=== PATIENT | female | born 1950 | race Caucasian/White ===

== ENCOUNTER 2021-04-07 18:09 | Inpatient (IN) ==
[2021-04-07] MEDS ORDERED: NS 0.9% 1000 ml BAG 1,000 ML IV ONE (19:10)
[2021-04-07 21:11] LABS: ABS Basophils 0.1 10^3/ul (0-0.2); ABS Eosinophils 0.1 10^3/ul (0-0.6); ABS Lymphocytes 0.8 10^3/ul (1.0-4.8); ABS Monocytes 0.5 10^3/ul (0-0.8); ABS Neutrophils 7.6 10^3/ul (1.5-7.7); Eosinophil % 1.4 %; Hematocrit 26 % (35-47); Hemoglobin 8.9 g/dL (12.0-16.0); Lymphocyte % 8.5 %; Mean Corpuscular HGB Conc 34 g/dL (31-36); Mean Corpuscular Hemoglobin 29 pg (27-31); Mean Corpuscular Volume 85 fL (80-97); Mean Platelet Volume 7.2 fL (7.4-10.4); Platelet Count 303 10^3/uL (150-450); Red Blood Count 3.06 10^6 /uL (3.70-4.87); Red Cell Distribution Width 15 % (10-15)
[2021-04-07 21:29] LABS: ALT 8 U/L (7-52); Albumin 3.1 g/dL (3.2-5.2); Albumin/Globulin Ratio 0.8 (1-3); Alkaline Phosphatase 67 U/L (35-149); Blood Urea Nitrogen 35 mg/dL (6-24); CO2 Carbon Dioxide 32 mmol/L (22-32); Calcium 9.1 mg/dL (8.6-10.3); Chloride 101 mmol/L (101-111); Globulin 3.7 g/dL (2-4); Glucose 196 mg/dL (70-100); Magnesium 1.5 mg/dL (1.9-2.7); Sodium 140 mmol/L (135-145); Total Protein 6.8 g/dL (6.4-8.9)
[2021-04-07] MEDS ORDERED: Furosemide 20 mg/2 ml IV VIAL IV SLOW PU ONE (21:38)
[2021-04-07 21:41] LABS: Anion Gap 7 mmol/L (2-11); Troponin I 0.04 ng/mL (<0.03)
[2021-04-07 22:23] LABS: Urine Appearance Cloudy; Urine Bilirubin Negative (Negative); Urine Blood 1+ (Negative); Urine Color Yellow; Urine Glucose Negative (Negative); Urine Ketones Negative (Negative); Urine Nitrite Negative (Negative); Urine Protein 2+(100 mg/dL) (Negative); Urine Urobilinogen Negative (Negative)
[2021-04-07 22:25] LABS: Urine Bacteria 3+ (Absent); Urine Red Blood Cell 3+(>10/hpf) (Absent); Urine Squamous Epithelial Cell Present (Absent); Urine White Blood Cell 2+(11-20/hpf) (Absent)
[2021-04-07 23:08] LABS: Rapid COVID-19 Molecular Undetected (Undetected)
[2021-04-07 23:12] LABS: Troponin I 0.04 ng/mL (<0.03)
[2021-04-07] MEDS ORDERED: Potassium Chloride LIQUID 20 MEQ/15 ML LIQUID PO ONE (23:28)
[2021-04-08] MEDS ORDERED: cefTRIAXone 1 gm/50 mL NS BAG 1 GM/50 ML BAG IVPB SCH
[2021-04-08] MEDS ORDERED: Albuterol HFA INHALER 8 gm MDI INH PRN (00:07)
[2021-04-08] MEDS ORDERED: Dextrose 50% Syringe 50 ml 25 GM/50 ML SYRINGE IV PUSH PRN (00:08)
[2021-04-08 00:19] LABS: Alcohol, S < 13 mg/dL (<13); Total Iron Binding Capacity 231 mcg/dL (250-450); Transferrin 165 mg/dL (203-362)
[2021-04-08] MEDS: Magnesium Sulf 4 GM/100 ML IV 4,000 MG/100 ML BAG IVPB ONE ×2 (00:30→01:29)
[2021-04-08] MEDS: cefTRIAXone 1 gm/50 mL NS BAG 1 GM/50 ML BAG IVPB SCH ×2 (00:32→20:40)
[2021-04-08 00:55] LABS: Ferritin 117.9 ng/mL (11-307)
[2021-04-08 00:58] LABS: Folate > 20.00 ng/mL (5.90-24.80)
[2021-04-08 00:59] LABS: Vitamin B12 375 pg/mL (180-914)
[2021-04-08 01:32] LABS: % Iron Saturation 22 % (15-55); Unsaturated Iron Binding < 216 ug/dL
[2021-04-08 01:33] LABS: Iron 51 ug/dL (50-212)
[2021-04-08 02:12] LABS: Troponin I 0.04 ng/mL (<0.03)
[2021-04-08 04:43] LABS: ABS Eosinophils 0.2 10^3/ul (0-0.6); ABS Lymphocytes 0.8 10^3/ul (1.0-4.8); ABS Monocytes 0.5 10^3/ul (0-0.8); ABS Neutrophils 6.6 10^3/ul (1.5-7.7); Eosinophil % 2.2 %; Hematocrit 25 % (35-47); Hemoglobin 8.3 g/dL (12.0-16.0); Lymphocyte % 10.1 %; Mean Corpuscular HGB Conc 34 g/dL (31-36); Mean Corpuscular Hemoglobin 29 pg (27-31); Mean Corpuscular Volume 85 fL (80-97); Mean Platelet Volume 6.9 fL (7.4-10.4); Platelet Count 305 10^3/uL (150-450); Red Blood Count 2.88 10^6 /uL (3.70-4.87); Red Cell Distribution Width 15 % (10-15); White Blood Count 8.2 10^3/uL (3.5-10.8)
[2021-04-08 07:13] LABS: ALT 7 U/L (7-52); AST 14 U/L (13-39); Albumin 3.1 g/dL (3.2-5.2); Albumin/Globulin Ratio 0.8 (1-3); Alkaline Phosphatase 71 U/L (35-149); Anion Gap 10 mmol/L (2-11); Blood Urea Nitrogen 32 mg/dL (6-24); CO2 Carbon Dioxide 31 mmol/L (22-32); Calcium 9.1 mg/dL (8.6-10.3); Chloride 102 mmol/L (101-111); Globulin 3.8 g/dL (2-4); Glucose 128 mg/dL (70-100); Potassium 3.4 mmol/L (3.5-5.0); Sodium 143 mmol/L (135-145); Total Protein 6.9 g/dL (6.4-8.9)
[2021-04-08] MEDS ORDERED: Perflutren Lipid Microsphere 3 ML VIAL ONE (08:10)
[2021-04-08] MEDS: SPIRIVA Respimat (tiotropium) 2.5 mcg/inh Inhaler INH SCH (08:14)
[2021-04-08] MEDS: Mometasone/Formoter 100/5 MDI INH SCH ×2 (08:14→20:08)
[2021-04-08] MEDS ORDERED: Potassium Chloride LIQUID 20 MEQ/15 ML LIQUID PO ONE (08:16)
[2021-04-08] MEDS: Aspirin EC 81 mg TAB.EC (enteric coated) PO SCH (09:33)
[2021-04-08] MEDS: Furosemide 20 mg/2 ml IV VIAL IV SLOW PU SCH ×2 (09:41→14:48)
[2021-04-08 15:08] LABS: T4, Total 9.42 mcg/dL (6.09-12.23)
[2021-04-08 15:12] LABS: TSH Ultra Thyroid Stim Horm 14.49 mcIU/mL (0.34-5.60)
[2021-04-09 06:17] LABS: ABS Basophils 0.1 10^3/ul (0-0.2); ABS Eosinophils 0.2 10^3/ul (0-0.6); ABS Lymphocytes 0.7 10^3/ul (1.0-4.8); ABS Monocytes 0.5 10^3/ul (0-0.8); ABS Neutrophils 7.2 10^3/ul (1.5-7.7); Eosinophil % 2.2 %; Hematocrit 27 % (35-47); Lymphocyte % 7.9 %; Mean Corpuscular HGB Conc 33 g/dL (31-36); Mean Corpuscular Hemoglobin 29 pg (27-31); Mean Corpuscular Volume 86 fL (80-97); Mean Platelet Volume 7.1 fL (7.4-10.4); Platelet Count 320 10^3/uL (150-450); Red Blood Count 3.15 10^6 /uL (3.70-4.87); Red Cell Distribution Width 15 % (10-15); White Blood Count 8.6 10^3/uL (3.5-10.8)
[2021-04-09 06:32] LABS: Calcium 9.3 mg/dL (8.6-10.3); Magnesium 2.1 mg/dL (1.9-2.7); Potassium 3.3 mmol/L (3.5-5.0)
[2021-04-09] MEDS ORDERED: Potassium Chloride LIQUID 20 MEQ/15 ML LIQUID PO ONE (08:16)
[2021-04-09] MEDS: Aspirin EC 81 mg TAB.EC (enteric coated) PO SCH (08:26)
[2021-04-09] MEDS: Furosemide 20 mg/2 ml IV VIAL IV SLOW PU SCH ×2 (08:26→15:09)
[2021-04-09] MEDS: SPIRIVA Respimat (tiotropium) 2.5 mcg/inh Inhaler INH SCH (08:42)
[2021-04-09] MEDS: Mometasone/Formoter 100/5 MDI INH SCH ×2 (08:42→21:18)
[2021-04-09] MEDS: Enoxaparin 30 MG/0.3 ML SYR SUBCUT SCH (15:08)
[2021-04-09] MEDS ORDERED: Potassium Chlor 20 meq TAB.ER PO ONE (16:02)
[2021-04-09] MEDS: cefTRIAXone 1 gm/50 mL NS BAG 1 GM/50 ML BAG IVPB SCH (20:43)
[2021-04-10 07:00] LABS: ABS Basophils 0.1 10^3/ul (0-0.2); ABS Eosinophils 0.2 10^3/ul (0-0.6); ABS Lymphocytes 0.9 10^3/ul (1.0-4.8); ABS Monocytes 0.4 10^3/ul (0-0.8); ABS Neutrophils 4.2 10^3/ul (1.5-7.7); Hematocrit 24 % (35-47); Hemoglobin 7.8 g/dL (12.0-16.0); Lymphocyte % 15.5 %; Mean Corpuscular HGB Conc 33 g/dL (31-36); Mean Corpuscular Hemoglobin 29 pg (27-31); Mean Corpuscular Volume 88 fL (80-97); Mean Platelet Volume 7.1 fL (7.4-10.4); Platelet Count 243 10^3/uL (150-450); Red Blood Count 2.69 10^6 /uL (3.70-4.87); Red Cell Distribution Width 16 % (10-15); White Blood Count 5.7 10^3/uL (3.5-10.8)
[2021-04-10 07:19] LABS: Calcium 8.9 mg/dL (8.6-10.3); Potassium 3.9 mmol/L (3.5-5.0)
[2021-04-10] MEDS: Mometasone/Formoter 100/5 MDI INH SCH ×2 (08:05→20:35)
[2021-04-10] MEDS: SPIRIVA Respimat (tiotropium) 2.5 mcg/inh Inhaler INH SCH (08:05)
[2021-04-10] MEDS: Aspirin EC 81 mg TAB.EC (enteric coated) PO SCH (08:51)
[2021-04-10] MEDS: Furosemide 20 mg/2 ml IV VIAL IV SLOW PU SCH ×2 (10:26→15:43)
[2021-04-10] MEDS ORDERED: Magnesium Sulfate 2 gm BAG 2 GM/50 ML BAG ONE (10:53)
[2021-04-10] MEDS: Enoxaparin 30 MG/0.3 ML SYR SUBCUT SCH (14:27)
[2021-04-10] MEDS: cefTRIAXone 1 gm/50 mL NS BAG 1 GM/50 ML BAG IVPB SCH (21:30)
[2021-04-11 06:10] LABS: ABS Basophils 0.1 10^3/ul (0-0.2); ABS Eosinophils 0.2 10^3/ul (0-0.6); ABS Lymphocytes 0.9 10^3/ul (1.0-4.8); ABS Monocytes 0.5 10^3/ul (0-0.8); ABS Neutrophils 6.9 10^3/ul (1.5-7.7); Eosinophil % 2.1 %; Hematocrit 28 % (35-47); Hemoglobin 9.4 g/dL (12.0-16.0); Lymphocyte % 10.6 %; Mean Corpuscular HGB Conc 34 g/dL (31-36); Mean Corpuscular Hemoglobin 29 pg (27-31); Mean Corpuscular Volume 87 fL (80-97); Mean Platelet Volume 7.2 fL (7.4-10.4); Platelet Count 301 10^3/uL (150-450); Red Blood Count 3.23 10^6 /uL (3.70-4.87); Red Cell Distribution Width 16 % (10-15); White Blood Count 8.5 10^3/uL (3.5-10.8)
[2021-04-11 06:33] LABS: Calcium 9.3 mg/dL (8.6-10.3); Potassium 3.8 mmol/L (3.5-5.0)
[2021-04-11] MEDS: Mometasone/Formoter 100/5 MDI INH SCH ×2 (07:38→20:28)
[2021-04-11] MEDS: SPIRIVA Respimat (tiotropium) 2.5 mcg/inh Inhaler INH SCH (07:39)
[2021-04-11] MEDS: Aspirin EC 81 mg TAB.EC (enteric coated) PO SCH (09:03)
[2021-04-11] MEDS: Furosemide 20 mg/2 ml IV VIAL IV SLOW PU SCH ×2 (09:10→14:35)
[2021-04-11] MEDS ORDERED: Polyethylene Glycol 3350 17 GM PACKET PO PRN (11:23)
[2021-04-11] MEDS ORDERED: Magnesium Hydroxide LIQ 30 ML UDC PO PRN (11:23)
[2021-04-11] MEDS ORDERED: Senna TAB 8.6 mg TAB PO PRN (11:23)
[2021-04-11] MEDS: Enoxaparin 30 MG/0.3 ML SYR SUBCUT SCH (14:35)
[2021-04-11] MEDS: cefTRIAXone 1 gm/50 mL NS BAG 1 GM/50 ML BAG IVPB SCH (21:10)
[2021-04-12] MEDS: SPIRIVA Respimat (tiotropium) 2.5 mcg/inh Inhaler INH SCH (07:52)
[2021-04-12] MEDS: Mometasone/Formoter 100/5 MDI INH SCH ×2 (07:52→20:34)
[2021-04-12] MEDS: Aspirin EC 81 mg TAB.EC (enteric coated) PO SCH (08:46)
[2021-04-12] MEDS: Furosemide 20 mg/2 ml IV VIAL IV SLOW PU SCH ×3 (08:53→14:28)
[2021-04-12] MEDS: Enoxaparin 30 MG/0.3 ML SYR SUBCUT SCH (13:55)
[2021-04-12] MEDS: cefTRIAXone 1 gm/50 mL NS BAG 1 GM/50 ML BAG IVPB SCH (21:19)
[2021-04-13] MEDS: Aspirin EC 81 mg TAB.EC (enteric coated) PO SCH (08:47)
[2021-04-13] MEDS: Furosemide 20 mg/2 ml IV VIAL IV SLOW PU SCH ×2 (09:05→15:06)
[2021-04-13] MEDS: SPIRIVA Respimat (tiotropium) 2.5 mcg/inh Inhaler INH SCH (09:19)
[2021-04-13] MEDS: Mometasone/Formoter 100/5 MDI INH SCH ×2 (09:20→20:05)
[2021-04-13 10:30] LABS: ABS Basophils 0.1 10^3/ul (0-0.2); ABS Eosinophils 0.2 10^3/ul (0-0.6); ABS Lymphocytes 0.8 10^3/ul (1.0-4.8); ABS Monocytes 0.3 10^3/ul (0-0.8); ABS Neutrophils 3.9 10^3/ul (1.5-7.7); Eosinophil % 3.8 %; Hematocrit 29 % (35-47); Hemoglobin 9.7 g/dL (12.0-16.0); Lymphocyte % 15.5 %; Mean Corpuscular HGB Conc 33 g/dL (31-36); Mean Corpuscular Hemoglobin 29 pg (27-31); Mean Corpuscular Volume 88 fL (80-97); Mean Platelet Volume 7.3 fL (7.4-10.4); Nucleated Red Blood Cells % 0.1; Platelet Count 288 10^3/uL (150-450); Red Blood Count 3.34 10^6 /uL (3.70-4.87); Red Cell Distribution Width 16 % (10-15); White Blood Count 5.4 10^3/uL (3.5-10.8)
[2021-04-13 10:49] LABS: Calcium 9.4 mg/dL (8.6-10.3); Magnesium 1.7 mg/dL (1.9-2.7); Potassium 3.6 mmol/L (3.5-5.0)
[2021-04-13] MEDS: Enoxaparin 30 MG/0.3 ML SYR SUBCUT SCH (15:04)
[2021-04-13] MEDS: Nystatin TOP POWDER 15 GM BTL TOPICAL SCH ×3 (18:06→21:33)
[2021-04-13] MEDS: cefTRIAXone 1 gm/50 mL NS BAG 1 GM/50 ML BAG IVPB SCH (21:17)
[2021-04-14] MEDS: Mometasone/Formoter 100/5 MDI INH SCH ×2 (07:54→21:29)
[2021-04-14] MEDS: SPIRIVA Respimat (tiotropium) 2.5 mcg/inh Inhaler INH SCH (07:55)
[2021-04-14] MEDS: Aspirin EC 81 mg TAB.EC (enteric coated) PO SCH (09:14)
[2021-04-14] MEDS: Nystatin TOP POWDER 15 GM BTL TOPICAL SCH ×4 (09:15→21:45)
[2021-04-14 12:03] LABS: Calcium 9.2 mg/dL (8.6-10.3); Magnesium 1.7 mg/dL (1.9-2.7)
[2021-04-14] MEDS ORDERED: Magnesium Sulfate 2 gm BAG 2 GM/50 ML BAG IVPB ONE (13:45)
[2021-04-14] MEDS: Enoxaparin 30 MG/0.3 ML SYR SUBCUT SCH (14:48)
[2021-04-15 05:25] LABS: ABS Basophils 0.1 10^3/ul (0-0.2); ABS Eosinophils 0.2 10^3/ul (0-0.6); ABS Lymphocytes 0.9 10^3/ul (1.0-4.8); ABS Monocytes 0.4 10^3/ul (0-0.8); Eosinophil % 3.9 %; Hematocrit 27 % (35-47); Hemoglobin 8.9 g/dL (12.0-16.0); Lymphocyte % 19.9 %; Mean Corpuscular HGB Conc 34 g/dL (31-36); Mean Corpuscular Hemoglobin 29 pg (27-31); Mean Corpuscular Volume 87 fL (80-97); Mean Platelet Volume 7.1 fL (7.4-10.4); Nucleated Red Blood Cells % 0.1; Platelet Count 235 10^3/uL (150-450); Red Blood Count 3.05 10^6 /uL (3.70-4.87); Red Cell Distribution Width 16 % (10-15); White Blood Count 4.5 10^3/uL (3.5-10.8)
[2021-04-15 05:52] LABS: Calcium 9.2 mg/dL (8.6-10.3); Potassium 3.8 mmol/L (3.5-5.0)
[2021-04-15] MEDS: Mometasone/Formoter 100/5 MDI INH SCH ×2 (07:57→20:37)
[2021-04-15] MEDS: SPIRIVA Respimat (tiotropium) 2.5 mcg/inh Inhaler INH SCH (07:57)
[2021-04-15] MEDS: Aspirin EC 81 mg TAB.EC (enteric coated) PO SCH (09:42)
[2021-04-15] MEDS: Nystatin TOP POWDER 15 GM BTL TOPICAL SCH ×3 (09:42→21:55)
[2021-04-15 11:10] LABS: Kappa Free Light Chain 12.1 mg/dL; Lambda Free Light Chain, S 8.11 mg/dL
[2021-04-15] MEDS: Enoxaparin 30 MG/0.3 ML SYR SUBCUT SCH (12:45)
[2021-04-16 05:32] LABS: ABS Basophils 0.1 10^3/ul (0-0.2); ABS Eosinophils 0.2 10^3/ul (0-0.6); ABS Lymphocytes 0.9 10^3/ul (1.0-4.8); ABS Monocytes 0.3 10^3/ul (0-0.8); ABS Neutrophils 3.4 10^3/ul (1.5-7.7); Hematocrit 28 % (35-47); Lymphocyte % 18.9 %; Mean Corpuscular HGB Conc 33 g/dL (31-36); Mean Corpuscular Hemoglobin 29 pg (27-31); Mean Corpuscular Volume 87 fL (80-97); Mean Platelet Volume 6.7 fL (7.4-10.4); Platelet Count 259 10^3/uL (150-450); Red Blood Count 3.14 10^6 /uL (3.70-4.87); Red Cell Distribution Width 16 % (10-15)
[2021-04-16 05:52] LABS: Calcium 9.1 mg/dL (8.6-10.3); Potassium 3.7 mmol/L (3.5-5.0)
[2021-04-16] MEDS: SPIRIVA Respimat (tiotropium) 2.5 mcg/inh Inhaler INH SCH (08:08)
[2021-04-16] MEDS: Mometasone/Formoter 100/5 MDI INH SCH ×2 (08:08→21:14)
[2021-04-16] MEDS: Aspirin EC 81 mg TAB.EC (enteric coated) PO SCH (08:48)
[2021-04-16] MEDS: Nystatin TOP POWDER 15 GM BTL TOPICAL SCH ×3 (08:48→20:24)
[2021-04-16 14:24] LABS: Albumin 2.7 g/dL (3.4-4.7); Albumin/Globulin Ratio 0.69; Gamma Globulin 1.6 g/dL (0.6-1.6); Total Protein(PEP) 6.7 g/dL (6.3 - 7.9)
[2021-04-16] MEDS: Enoxaparin 30 MG/0.3 ML SYR SUBCUT SCH (15:03)
[2021-04-17] MEDS: Mometasone/Formoter 100/5 MDI INH SCH ×2 (08:19→19:27)
[2021-04-17] MEDS: SPIRIVA Respimat (tiotropium) 2.5 mcg/inh Inhaler INH SCH (08:19)
[2021-04-17] MEDS: Nystatin TOP POWDER 15 GM BTL TOPICAL SCH ×3 (09:27→20:40)
[2021-04-17] MEDS: Aspirin EC 81 mg TAB.EC (enteric coated) PO SCH (09:38)
[2021-04-17] MEDS: Enoxaparin 30 MG/0.3 ML SYR SUBCUT SCH (15:43)
[2021-04-18 06:36] LABS: ABS Basophils 0.1 10^3/ul (0-0.2); ABS Eosinophils 0.2 10^3/ul (0-0.6); ABS Lymphocytes 0.9 10^3/ul (1.0-4.8); ABS Monocytes 0.4 10^3/ul (0-0.8); ABS Neutrophils 3.2 10^3/ul (1.5-7.7); Eosinophil % 3.6 %; Hematocrit 26 % (35-47); Lymphocyte % 19.3 %; Mean Corpuscular HGB Conc 34 g/dL (31-36); Mean Corpuscular Hemoglobin 30 pg (27-31); Mean Corpuscular Volume 89 fL (80-97); Platelet Count 222 10^3/uL (150-450); Red Blood Count 2.99 10^6 /uL (3.70-4.87); Red Cell Distribution Width 17 % (10-15); White Blood Count 4.6 10^3/uL (3.5-10.8)
[2021-04-18 06:53] LABS: Potassium 3.7 mmol/L (3.5-5.0)
[2021-04-18] MEDS: SPIRIVA Respimat (tiotropium) 2.5 mcg/inh Inhaler INH SCH (08:07)
[2021-04-18] MEDS: Mometasone/Formoter 100/5 MDI INH SCH (08:07)
[2021-04-18] MEDS: Aspirin EC 81 mg TAB.EC (enteric coated) PO SCH (08:17)
[2021-04-18] MEDS: Nystatin TOP POWDER 15 GM BTL TOPICAL SCH (08:19)
[2021-04-18 13:37] VITALS: BP 131/50
== END 2021-04-18 15:00 | disposition home health service (06) | DRG 291 ==
LOC: EDHOLD 18:09 → ED 18:09 → MED 04-08 03:43 → SUATTDRO 04-08 11:28
PROVIDERS: ADMIT Internal Medicine; ATTEND Hospitalist

== ENCOUNTER 2021-09-25 16:24 | Inpatient (IN) ==
[2021-09-25 17:43] LABS: ABS Eosinophils 0.3 10^3/ul (0-0.6); ABS Lymphocytes 0.7 10^3/ul (1.0-4.8); ABS Monocytes 0.4 10^3/ul (0-0.8); ABS Neutrophils 4.7 10^3/ul (1.5-7.7); Eosinophil % 5.4 %; Hematocrit 30 % (35-47); Hemoglobin 10.1 g/dL (12.0-16.0); Lymphocyte % 11.2 %; Mean Corpuscular HGB Conc 34 g/dL (31-36); Mean Corpuscular Hemoglobin 29 pg (27-31); Mean Corpuscular Volume 86 fL (80-97); Mean Platelet Volume 8.2 fL (7.4-10.4); Platelet Count 260 10^3/uL (150-450); Red Blood Count 3.47 10^6 /uL (3.70-4.87); Red Cell Distribution Width 15 % (10-15); White Blood Count 6.3 10^3/uL (3.5-10.8)
[2021-09-25] MEDS ORDERED: Ondansetron 4 mg VIAL 2 MG/ML 2 ml VIAL IV ONE (17:46)
[2021-09-25 18:31] LABS: Albumin 3.4 g/dL (3.2-5.2); Albumin/Globulin Ratio 1.1 (1-3); Calcium 9.2 mg/dL (8.6-10.3); Globulin 3.2 g/dL (2-4); Potassium 3.9 mmol/L (3.5-5.0); Total Bilirubin 0.7 mg/dL (0.2-1.0); Total Protein 6.6 g/dL (6.4-8.9); eGFR CKD-EPI 41.8 (>60)
[2021-09-25] MEDS ORDERED: Furosemide 40 mg/4 ml IV VIAL IV SLOW PU ONE (18:35)
[2021-09-25 19:21] LABS: High Sensitivity Troponin 1 Hr 25 pg/mL (<15)
[2021-09-25] MEDS ORDERED: Iodixanol (CONTRAST) 320 MG/ML 100 ML SDV IV ONE (20:35)
[2021-09-25] MEDS ORDERED: Albuterol HFA INHALER 8 gm MDI INH PRN (23:36)
[2021-09-25] MEDS: Enoxaparin 40 MG/0.4 ML SYR SUBCUT SCH (23:56)
[2021-09-26] MEDS ORDERED: Enoxaparin 40 MG/0.4 ML SYR SUBCUT ONE (00:08)
[2021-09-26] MEDS ORDERED: Dextrose 50% Syringe 50 ml 25 GM/50 ML SYRINGE IV PUSH PRN (00:13)
[2021-09-26 00:58] LABS: Magnesium 1.8 mg/dL (1.9-2.7)
[2021-09-26] MEDS ORDERED: Ondansetron 4 mg VIAL 2 MG/ML 2 ml VIAL IV ONE (05:38)
[2021-09-26] MEDS ORDERED: Furosemide 40 mg/4 ml IV VIAL IV SLOW PU ONE (06:00)
[2021-09-26 09:07] LABS: ABS Basophils 0.1 10^3/ul (0-0.2); ABS Eosinophils 0.3 10^3/ul (0-0.6); ABS Lymphocytes 0.5 10^3/ul (1.0-4.8); ABS Monocytes 0.4 10^3/ul (0-0.8); ABS Neutrophils 7.8 10^3/ul (1.5-7.7); Eosinophil % 3.5 %; Hematocrit 33 % (35-47); Hemoglobin 10.8 g/dL (12.0-16.0); Lymphocyte % 5.9 %; Mean Corpuscular HGB Conc 33 g/dL (31-36); Mean Corpuscular Hemoglobin 29 pg (27-31); Mean Corpuscular Volume 87 fL (80-97); Mean Platelet Volume 8.5 fL (7.4-10.4); Nucleated Red Blood Cells % 0.1; Platelet Count 260 10^3/uL (150-450); Red Blood Count 3.73 10^6 /uL (3.70-4.87); Red Cell Distribution Width 14 % (10-15); White Blood Count 9.2 10^3/uL (3.5-10.8)
[2021-09-26] MEDS: Ipratropium HFA INHALER(NF) (ALTERNATIVE = NEBS) INH SCH ×4 (09:13→20:32)
[2021-09-26] MEDS: Mometasone/Formoter 100/5 MDI INH SCH ×2 (09:14→20:32)
[2021-09-26 09:43] LABS: Calcium 9.6 mg/dL (8.6-10.3); Magnesium 1.7 mg/dL (1.9-2.7); Potassium 4.1 mmol/L (3.5-5.0)
[2021-09-26 09:49] LABS: eGFR CKD-EPI 35.9 (>60)
[2021-09-26 10:07] LABS: Ferritin 95.9 ng/mL (11-307)
[2021-09-26] MEDS: Aspirin EC 81 mg TAB.EC (enteric coated) PO SCH (10:12)
[2021-09-26] MEDS ORDERED: Magnesium Sulf 4 GM/100 ML IV 4,000 MG/100 ML BAG IVPB ONE (11:27)
[2021-09-26] MEDS: Enoxaparin 40 MG/0.4 ML SYR SUBCUT SCH (22:07)
[2021-09-27] MEDS ORDERED: Ondansetron 4 mg VIAL 2 MG/ML 2 ml VIAL IV ONE (02:17)
[2021-09-27] MEDS: Benzocaine/Menthol LOZ PO PRN ×3 (03:19→23:12)
[2021-09-27 08:15] LABS: ABS Eosinophils 0.3 10^3/ul (0-0.6); ABS Lymphocytes 0.4 10^3/ul (1.0-4.8); ABS Monocytes 0.3 10^3/ul (0-0.8); Eosinophil % 5.3 %; Hematocrit 30 % (35-47); Lymphocyte % 7.2 %; Mean Corpuscular HGB Conc 33 g/dL (31-36); Mean Corpuscular Hemoglobin 29 pg (27-31); Mean Corpuscular Volume 87 fL (80-97); Mean Platelet Volume 8.5 fL (7.4-10.4); Platelet Count 258 10^3/uL (150-450); Red Blood Count 3.44 10^6 /uL (3.70-4.87); Red Cell Distribution Width 14 % (10-15)
[2021-09-27] MEDS: Ipratropium HFA INHALER(NF) (ALTERNATIVE = NEBS) INH SCH (08:16)
[2021-09-27] MEDS: Mometasone/Formoter 100/5 MDI INH SCH ×2 (08:19→20:03)
[2021-09-27 09:07] LABS: Calcium 9.2 mg/dL (8.6-10.3); Magnesium 2.6 mg/dL (1.9-2.7); Potassium 4.2 mmol/L (3.5-5.0)
[2021-09-27 09:13] LABS: eGFR CKD-EPI 28.8 (>60)
[2021-09-27] MEDS ORDERED: Furosemide 40 mg/4 ml IV VIAL IV SLOW PU ONE ×2 (09:42→14:00)
[2021-09-27] MEDS: Aspirin EC 81 mg TAB.EC (enteric coated) PO SCH (09:55)
[2021-09-27 13:56] LABS: Calcium 8.7 mg/dL (8.6-10.3); Potassium 4.1 mmol/L (3.5-5.0); eGFR CKD-EPI 28.8 (>60)
[2021-09-27] MEDS: cefTRIAXone 1 gm/50 mL D5W 1 GM/50 ML BAG IV SCH (15:35)
[2021-09-27] MEDS: Azithromycin 500 mg/250 ml NS 500 MG/250 ML BAG IVPB SCH ×2 (16:58→17:52)
[2021-09-27] MEDS: Enoxaparin 40 MG/0.4 ML SYR SUBCUT SCH (21:12)
[2021-09-27] MEDS: Ipratropium HFA INHALER(NF) (ALTERNATIVE = NEBS) INH PRN (23:12)
[2021-09-28 06:46] LABS: ABS Lymphocytes 0.3 10^3/ul (1.0-4.8); ABS Monocytes 0.3 10^3/ul (0-0.8); ABS Neutrophils 3.6 10^3/ul (1.5-7.7); Hematocrit 29 % (35-47); Hemoglobin 9.7 g/dL (12.0-16.0); Lymphocyte % 7.7 %; Mean Corpuscular HGB Conc 34 g/dL (31-36); Mean Corpuscular Hemoglobin 30 pg (27-31); Mean Corpuscular Volume 87 fL (80-97); Platelet Count 251 10^3/uL (150-450); Red Cell Distribution Width 14 % (10-15); White Blood Count 4.3 10^3/uL (3.5-10.8)
[2021-09-28 06:51] LABS: Calcium 8.8 mg/dL (8.6-10.3); Magnesium 2.5 mg/dL (1.9-2.7); eGFR CKD-EPI 20.9 (>60)
[2021-09-28] MEDS: Mometasone/Formoter 100/5 MDI INH SCH ×2 (08:26→20:07)
[2021-09-28] MEDS: Ipratropium HFA INHALER(NF) (ALTERNATIVE = NEBS) INH PRN (08:29)
[2021-09-28] MEDS: Aspirin EC 81 mg TAB.EC (enteric coated) PO SCH (09:18)
[2021-09-28] MEDS: Benzocaine/Menthol LOZ PO PRN ×2 (09:18→20:58)
[2021-09-28] MEDS ORDERED: NS 0.9% 1000 ml BAG 1,000 ML IV SCH (09:30)
[2021-09-28] MEDS: cefTRIAXone 1 gm/50 mL D5W 1 GM/50 ML BAG IV SCH (13:13)
[2021-09-28] MEDS: Azithromycin 500 mg/250 ml NS 500 MG/250 ML BAG IVPB SCH (17:07)
[2021-09-28] MEDS: Enoxaparin 40 MG/0.4 ML SYR SUBCUT SCH (20:54)
[2021-09-29] MEDS: Mometasone/Formoter 100/5 MDI INH SCH ×2 (07:29→19:35)
[2021-09-29 08:19] LABS: ABS Eosinophils 0.2 10^3/ul (0-0.6); ABS Lymphocytes 0.5 10^3/ul (1.0-4.8); ABS Monocytes 0.4 10^3/ul (0-0.8); ABS Neutrophils 2.1 10^3/ul (1.5-7.7); Eosinophil % 6.8 %; Hematocrit 30 % (35-47); Hemoglobin 9.9 g/dL (12.0-16.0); Lymphocyte % 14.8 %; Mean Corpuscular HGB Conc 34 g/dL (31-36); Mean Corpuscular Hemoglobin 29 pg (27-31); Mean Corpuscular Volume 87 fL (80-97); Mean Platelet Volume 8.6 fL (7.4-10.4); Platelet Count 243 10^3/uL (150-450); Red Cell Distribution Width 14 % (10-15); White Blood Count 3.2 10^3/uL (3.5-10.8)
[2021-09-29 08:53] LABS: Albumin 3.1 g/dL (3.2-5.2); Calcium 8.6 mg/dL (8.6-10.3); Globulin 3.2 g/dL (2-4); Magnesium 2.4 mg/dL (1.9-2.7); Potassium 3.9 mmol/L (3.5-5.0); Total Bilirubin 0.4 mg/dL (0.2-1.0); Total Protein 6.3 g/dL (6.4-8.9); eGFR CKD-EPI 19.7 (>60)
[2021-09-29] MEDS: Aspirin EC 81 mg TAB.EC (enteric coated) PO SCH (09:01)
[2021-09-29] MEDS: cefTRIAXone 1 gm/50 mL D5W 1 GM/50 ML BAG IV SCH (13:45)
[2021-09-29] MEDS: Azithromycin 500 mg/250 ml NS 500 MG/250 ML BAG IVPB SCH (15:29)
[2021-09-29] MEDS: Enoxaparin 30 MG/0.3 ML SYR SUBCUT SCH (21:09)
[2021-09-30 06:44] LABS: ABS Eosinophils 0.2 10^3/ul (0-0.6); ABS Lymphocytes 0.5 10^3/ul (1.0-4.8); ABS Monocytes 0.2 10^3/ul (0-0.8); ABS Neutrophils 1.8 10^3/ul (1.5-7.7); Eosinophil % 7.9 %; Hematocrit 28 % (35-47); Hemoglobin 9.5 g/dL (12.0-16.0); Lymphocyte % 16.9 %; Mean Corpuscular HGB Conc 34 g/dL (31-36); Mean Corpuscular Hemoglobin 29 pg (27-31); Mean Corpuscular Volume 87 fL (80-97); Mean Platelet Volume 8.6 fL (7.4-10.4); Nucleated Red Blood Cells % 0.1; Platelet Count 239 10^3/uL (150-450); Red Blood Count 3.27 10^6 /uL (3.70-4.87); Red Cell Distribution Width 14 % (10-15); White Blood Count 2.8 10^3/uL (3.5-10.8)
[2021-09-30] MEDS: Mometasone/Formoter 100/5 MDI INH SCH ×2 (07:10→20:47)
[2021-09-30 07:15] LABS: Calcium 8.5 mg/dL (8.6-10.3); Potassium 4.2 mmol/L (3.5-5.0); eGFR CKD-EPI 21.6 (>60)
[2021-09-30] MEDS: Aspirin EC 81 mg TAB.EC (enteric coated) PO SCH (08:59)
[2021-09-30 12:44] LABS: Urine Appearance Cloudy; Urine Bilirubin Negative (Negative); Urine Blood 1+ (Negative); Urine Color Yellow; Urine Glucose Negative (Negative); Urine Ketones Negative (Negative); Urine Nitrite Negative (Negative); Urine Protein 2+(100 mg/dL) (Negative); Urine Urobilinogen Negative (Negative)
[2021-09-30 12:54] LABS: Urine Bacteria Absent (Absent); Urine Red Blood Cell Trace(0-2/hpf) (Absent); Urine Squamous Epithelial Cell Present (Absent); Urine White Blood Cell Trace(0-5/hpf) (Absent)
[2021-09-30] MEDS: cefTRIAXone 1 gm/50 mL D5W 1 GM/50 ML BAG IV SCH (13:30)
[2021-09-30] MEDS: Enoxaparin 30 MG/0.3 ML SYR SUBCUT SCH ×2 (21:43→22:28)
[2021-10-01 06:49] LABS: Hematocrit 29 % (35-47); Hemoglobin 9.8 g/dL (12.0-16.0); Mean Corpuscular HGB Conc 34 g/dL (31-36); Mean Corpuscular Hemoglobin 29 pg (27-31); Mean Corpuscular Volume 86 fL (80-97); Mean Platelet Volume 8.6 fL (7.4-10.4); Platelet Count 272 10^3/uL (150-450); Red Blood Count 3.35 10^6 /uL (3.70-4.87); Red Cell Distribution Width 15 % (10-15); White Blood Count 4.2 10^3/uL (3.5-10.8)
[2021-10-01] MEDS: Mometasone/Formoter 100/5 MDI INH SCH ×2 (07:14→19:19)
[2021-10-01 07:21] LABS: Calcium 8.6 mg/dL (8.6-10.3); Magnesium 2.3 mg/dL (1.9-2.7); Potassium 4.5 mmol/L (3.5-5.0); eGFR CKD-EPI 24.7 (>60)
[2021-10-01] MEDS: Aspirin EC 81 mg TAB.EC (enteric coated) PO SCH (08:48)
[2021-10-01] MEDS: cefTRIAXone 1 gm/50 mL D5W 1 GM/50 ML BAG IV SCH ×2 (11:29→11:47)
[2021-10-01 15:56] LABS: NT-Pro B-Type Natriuretic Pep 10018 pg/mL (<=214)
[2021-10-01 18:29] LABS: Albumin 2.4 g/dL (3.4-4.7); Albumin/Globulin Ratio 0.69; Gamma Globulin 1.4 g/dL (0.6-1.6)
[2021-10-01] MEDS ORDERED: Ondansetron 4 mg VIAL 2 MG/ML 2 ml VIAL IV PRN (22:25)
[2021-10-01] MEDS: Enoxaparin 30 MG/0.3 ML SYR SUBCUT SCH (22:47)
[2021-10-02] MEDS: Mometasone/Formoter 100/5 MDI INH SCH (07:53)
[2021-10-02 08:52] VITALS: BP 151/54
[2021-10-02 08:53] LABS: Calcium 8.6 mg/dL (8.6-10.3); Potassium 4.3 mmol/L (3.5-5.0); eGFR CKD-EPI 28.8 (>60)
[2021-10-02] MEDS: cefTRIAXone 1 gm/50 mL D5W 1 GM/50 ML BAG IV SCH (09:31)
[2021-10-02] MEDS: Aspirin EC 81 mg TAB.EC (enteric coated) PO SCH (09:41)
[2021-10-03 08:28] LABS: Albumin 179.5 mg/dL; Albumin/Globulin Ratio 2.13; Protein,Total, Random Urine 264 mg/dL
== END 2021-10-02 12:13 | disposition home or self-care (01) | DRG 291 ==
LOC: ED 16:24 → SUATTDRO 23:01 → EDHOLD 23:01 → MEDTELE 09-26 01:22
PROVIDERS: ADMIT Hospitalist; ATTEND Internal Medicine

== ENCOUNTER 2021-10-03 03:27 | Inpatient (IN) ==
[2021-10-03 05:43] LABS: ABS Lymphocytes 0.5 10^3/ul (1.0-4.8); ABS Monocytes 0.2 10^3/ul (0-0.8); ABS Neutrophils 4.8 10^3/ul (1.5-7.7); Eosinophil % 0.9 %; Hematocrit 32 % (35-47); Hemoglobin 10.7 g/dL (12.0-16.0); Lymphocyte % 8.9 %; Mean Corpuscular HGB Conc 33 g/dL (31-36); Mean Corpuscular Hemoglobin 29 pg (27-31); Mean Corpuscular Volume 86 fL (80-97); Mean Platelet Volume 8.8 fL (7.4-10.4); Nucleated Red Blood Cells % 0.2; Platelet Count 307 10^3/uL (150-450); Red Blood Count 3.75 10^6 /uL (3.70-4.87); Red Cell Distribution Width 15 % (10-15); White Blood Count 5.6 10^3/uL (3.5-10.8)
[2021-10-03 06:01] LABS: Albumin 3.4 g/dL (3.2-5.2); Albumin/Globulin Ratio 0.9 (1-3); Calcium 9.3 mg/dL (8.6-10.3); Potassium 4.3 mmol/L (3.5-5.0); Total Bilirubin 0.5 mg/dL (0.2-1.0); Total Protein 7.4 g/dL (6.4-8.9)
[2021-10-03 06:06] LABS: High Sensitivity Troponin 1 Hr 75 pg/mL (<15)
[2021-10-03] MEDS ORDERED: Albuterol HFA INHALER 8 gm MDI INH PRN (08:07)
[2021-10-03] MEDS: LINAGLIPTIN 5 MG PO SCH (10:30)
[2021-10-03] MEDS: Enoxaparin 40 MG/0.4 ML SYR SUBCUT SCH (10:32)
[2021-10-03] MEDS: Mometasone/Formoter 100/5 MDI INH SCH ×2 (10:33→19:32)
[2021-10-03] MEDS: Aspirin EC 81 mg TAB.EC (enteric coated) PO SCH (10:33)
[2021-10-03] MEDS: IPRATROPIUM INH SCH ×3 (12:11→19:34)
[2021-10-03] MEDS ORDERED: Dextrose 50% Syringe 50 ml 25 GM/50 ML SYRINGE IV PUSH PRN (18:53)
[2021-10-04 06:52] LABS: ABS Eosinophils 0.4 10^3/ul (0-0.6); ABS Lymphocytes 0.5 10^3/ul (1.0-4.8); ABS Monocytes 0.3 10^3/ul (0-0.8); ABS Neutrophils 5.3 10^3/ul (1.5-7.7); Eosinophil % 5.7 %; Hematocrit 28 % (35-47); Hemoglobin 9.7 g/dL (12.0-16.0); Lymphocyte % 8.3 %; Mean Corpuscular HGB Conc 35 g/dL (31-36); Mean Corpuscular Hemoglobin 30 pg (27-31); Mean Corpuscular Volume 86 fL (80-97); Mean Platelet Volume 8.5 fL (7.4-10.4); Platelet Count 283 10^3/uL (150-450); Red Blood Count 3.28 10^6 /uL (3.70-4.87); Red Cell Distribution Width 15 % (10-15); White Blood Count 6.6 10^3/uL (3.5-10.8)
[2021-10-04 07:08] LABS: Calcium 8.8 mg/dL (8.6-10.3); Potassium 4.4 mmol/L (3.5-5.0)
[2021-10-04] MEDS: IPRATROPIUM INH SCH ×4 (07:29→19:07)
[2021-10-04] MEDS: Mometasone/Formoter 100/5 MDI INH SCH ×2 (07:29→19:09)
[2021-10-04] MEDS ORDERED: Furosemide 40 mg/4 ml IV VIAL IV ONE (09:35)
[2021-10-04] MEDS: Aspirin EC 81 mg TAB.EC (enteric coated) PO SCH (10:05)
[2021-10-04] MEDS: Enoxaparin 40 MG/0.4 ML SYR SUBCUT SCH (10:07)
[2021-10-04] MEDS: LINAGLIPTIN 5 MG PO SCH (11:27)
[2021-10-05] MEDS ORDERED: Saline NASAL SPRAY 0.65% BTL BOTH NARES PRN (03:25)
[2021-10-05] MEDS: IPRATROPIUM INH SCH ×4 (07:30→19:46)
[2021-10-05] MEDS: Mometasone/Formoter 100/5 MDI INH SCH ×2 (07:31→19:46)
[2021-10-05 08:13] LABS: Magnesium 2.4 mg/dL (1.9-2.7); Potassium 4.4 mmol/L (3.5-5.0); eGFR CKD-EPI 29.2 (>60)
[2021-10-05] MEDS: Aspirin EC 81 mg TAB.EC (enteric coated) PO SCH (08:33)
[2021-10-05] MEDS: LINAGLIPTIN 5 MG PO SCH (08:34)
[2021-10-05] MEDS: Enoxaparin 30 MG/0.3 ML SYR SUBCUT SCH (08:35)
[2021-10-05] MEDS ORDERED: Furosemide 40 mg/4 ml IV VIAL IV ONE (09:03)
[2021-10-05] MEDS ORDERED: Iron Sucrose 20 MG/ML 5 ML VIAL IV PUSH ONE (15:45)
[2021-10-05] MEDS ORDERED: Iron Sucrose 200 MG in NS 0.9% 100 ml IVPB ONE (17:00)
[2021-10-06] MEDS: IPRATROPIUM INH SCH ×4 (07:04→19:08)
[2021-10-06] MEDS: Mometasone/Formoter 100/5 MDI INH SCH ×2 (07:05→19:08)
[2021-10-06] MEDS: Aspirin EC 81 mg TAB.EC (enteric coated) PO SCH (07:44)
[2021-10-06] MEDS: Enoxaparin 30 MG/0.3 ML SYR SUBCUT SCH (07:46)
[2021-10-06] MEDS: LINAGLIPTIN 5 MG PO SCH (07:46)
[2021-10-06] MEDS ORDERED: Furosemide 40 mg/4 ml IV VIAL IV ONE (08:00)
[2021-10-06 08:02] LABS: Magnesium 2.5 mg/dL (1.9-2.7); Potassium 4.4 mmol/L (3.5-5.0); eGFR CKD-EPI 28.8 (>60)
[2021-10-06] MEDS ORDERED: Furosemide 20 mg/2 ml IV VIAL IV ONE (11:52)
[2021-10-07 06:35] LABS: Calcium 9.1 mg/dL (8.6-10.3); Magnesium 2.5 mg/dL (1.9-2.7); eGFR CKD-EPI 25.3 (>60)
[2021-10-07 06:39] LABS: Potassium 5.2 mmol/L (3.5-5.0)
[2021-10-07] MEDS ORDERED: Furosemide 40 mg/4 ml IV VIAL IV ONE (07:08)
[2021-10-07] MEDS: IPRATROPIUM INH SCH ×4 (07:27→20:57)
[2021-10-07] MEDS: Mometasone/Formoter 100/5 MDI INH SCH ×2 (07:27→21:00)
[2021-10-07] MEDS: Enoxaparin 30 MG/0.3 ML SYR SUBCUT SCH (09:24)
[2021-10-07] MEDS: Aspirin EC 81 mg TAB.EC (enteric coated) PO SCH (09:24)
[2021-10-07] MEDS: LINAGLIPTIN 5 MG PO SCH (09:27)
[2021-10-07] MEDS: Insulin GLARGINE 100 un/ml 10 ml VIAL SUBCUT SCH (21:48)
[2021-10-08 07:51] LABS: Calcium 9.4 mg/dL (8.6-10.3); Magnesium 2.5 mg/dL (1.9-2.7); Potassium 4.9 mmol/L (3.5-5.0); eGFR CKD-EPI 22.7 (>60)
[2021-10-08] MEDS ORDERED: Furosemide 100 mg/10 ml IV VIAL IV ONE (08:00)
[2021-10-08] MEDS: Mometasone/Formoter 100/5 MDI INH SCH ×2 (08:08→20:39)
[2021-10-08] MEDS: IPRATROPIUM INH SCH ×4 (08:09→20:39)
[2021-10-08] MEDS: Enoxaparin 30 MG/0.3 ML SYR SUBCUT SCH (08:15)
[2021-10-08] MEDS: Aspirin EC 81 mg TAB.EC (enteric coated) PO SCH (08:15)
[2021-10-08] MEDS ORDERED: Dextrose 50% Syringe 50 ml 25 GM/50 ML SYRINGE IV PUSH PRN ×2 (09:05→18:06)
[2021-10-08] MEDS ORDERED: Iron Sucrose 200 MG in NS 0.9% 100 ml BAG 100 ML IVPB ONE (16:30)
[2021-10-08] MEDS: Insulin GLARGINE 100 un/ml 10 ml VIAL SUBCUT SCH (21:53)
[2021-10-09 06:25] LABS: Calcium 9.4 mg/dL (8.6-10.3); Magnesium 2.6 mg/dL (1.9-2.7); Potassium 4.7 mmol/L (3.5-5.0); eGFR CKD-EPI 22.3 (>60)
[2021-10-09] MEDS: IPRATROPIUM INH SCH ×4 (08:18→20:10)
[2021-10-09] MEDS: Mometasone/Formoter 100/5 MDI INH SCH ×2 (08:18→20:10)
[2021-10-09] MEDS: Aspirin EC 81 mg TAB.EC (enteric coated) PO SCH (10:10)
[2021-10-09] MEDS: Enoxaparin 30 MG/0.3 ML SYR SUBCUT SCH (10:27)
[2021-10-09] MEDS ORDERED: Iron Sucrose 20 MG/ML 5 ML VIAL IV PUSH ONE (14:39)
[2021-10-09] MEDS ORDERED: Iron Sucrose 200 MG in NS 0.9% 100 ml IVPB ONE (15:00)
[2021-10-09] MEDS: Insulin GLARGINE 100 un/ml 10 ml VIAL SUBCUT SCH (21:14)
[2021-10-10 06:45] LABS: Calcium 9.2 mg/dL (8.6-10.3); eGFR CKD-EPI 25.1 (>60)
[2021-10-10] MEDS: IPRATROPIUM INH SCH ×4 (07:36→19:13)
[2021-10-10] MEDS: Mometasone/Formoter 100/5 MDI INH SCH ×2 (07:36→19:12)
[2021-10-10] MEDS: Insulin GLARGINE 100 un/ml 10 ml VIAL SUBCUT SCH ×2 (09:03→22:16)
[2021-10-10] MEDS: Aspirin EC 81 mg TAB.EC (enteric coated) PO SCH (09:04)
[2021-10-10] MEDS: Enoxaparin 30 MG/0.3 ML SYR SUBCUT SCH (09:04)
[2021-10-10] MEDS ORDERED: Iron Sucrose 200 MG in NS 0.9% 100 ml BAG 100 ML IVPB ONE (09:22)
[2021-10-11 06:14] LABS: Calcium 8.8 mg/dL (8.6-10.3); Magnesium 2.3 mg/dL (1.9-2.7); Potassium 4.3 mmol/L (3.5-5.0)
[2021-10-11] MEDS ORDERED: Iron Sucrose 200 MG in NS 0.9% 100 ml BAG 100 ML IVPB ONE (07:15)
[2021-10-11] MEDS: Enoxaparin 30 MG/0.3 ML SYR SUBCUT SCH (07:59)
[2021-10-11] MEDS: Aspirin EC 81 mg TAB.EC (enteric coated) PO SCH (08:02)
[2021-10-11] MEDS: Mometasone/Formoter 100/5 MDI INH SCH (08:21)
[2021-10-11] MEDS: IPRATROPIUM INH SCH ×2 (08:21→11:33)
[2021-10-11] MEDS: Insulin GLARGINE 100 un/ml 10 ml VIAL SUBCUT SCH (09:23)
[2021-10-11 11:54] VITALS: BP 151/52
== END 2021-10-11 12:55 | disposition home or self-care (01) | DRG 193 ==
LOC: ED 03:27 → EDHOLD 03:27 → SUATTDRO 08:04 → MED 16:00 → EDHOLD 16:04 → SUATTDRO 10-05 19:31 → MED 10-10 09:28
PROVIDERS: ADMIT Hospitalist; ATTEND Internal Medicine

== ENCOUNTER 2022-02-17 15:22 | Observation (INO) ==
[2022-02-17 16:31] LABS: ABS Basophils 0.1 10^3/ul (0-0.2); ABS Eosinophils 0.3 10^3/ul (0-0.6); ABS Monocytes 0.3 10^3/ul (0-0.8); ABS Neutrophils 4.1 10^3/ul (1.5-7.7); Eosinophil % 5.2 %; Hematocrit 22 % (35-47); Hemoglobin 7.3 g/dL (12.0-16.0); Lymphocyte % 17.1 %; Mean Corpuscular HGB Conc 33 g/dL (31-36); Mean Corpuscular Hemoglobin 29 pg (27-31); Mean Corpuscular Volume 89 fL (80-97); Mean Platelet Volume 8.5 fL (7.4-10.4); Platelet Count 240 10^3/uL (150-450); Red Cell Distribution Width 14 % (10-15); White Blood Count 5.8 10^3/uL (3.5-10.8)
[2022-02-17 16:32] LABS: Urine Appearance Clear; Urine Bilirubin Negative (Negative); Urine Blood Trace (Intact) (Negative); Urine Color Yellow; Urine Glucose Negative (Negative); Urine Ketones Negative (Negative); Urine Nitrite Negative (Negative); Urine Protein 3+ (>=300 mg/dL) (Negative); Urine Specific Gravity 1.025 (1.005-1.030); Urine Urobilinogen 0.2 (Negative) (Negative)
[2022-02-17 16:40] LABS: Urine Bacteria Absent (Absent); Urine Red Blood Cell Trace(0-2/hpf) (Absent); Urine Squamous Epithelial Cell Present (Absent); Urine White Blood Cell Trace(0-5/hpf) (Absent)
[2022-02-17 16:47] LABS: High Sens Troponin Baseline 19 pg/mL (<15)
[2022-02-17 17:10] LABS: ALT 18 U/L (7-52); AST 16 U/L (13-39); Albumin 3.5 g/dL (3.2-5.2); Albumin/Globulin Ratio 1.2 (1-3); Alkaline Phosphatase 116 U/L (35-149); Anion Gap 5 mmol/L (2-11); Blood Urea Nitrogen 56 mg/dL (6-24); C Reactive Protein 2.52 mg/L (<8.01); CO2 Carbon Dioxide 26 mmol/L (22-32); Calcium 9.7 mg/dL (8.6-10.3); Chloride 107 mmol/L (101-111); Glucose 184 mg/dL (70-100); Lipase 38 U/L (11.0-82.0); Potassium 4.8 mmol/L (3.5-5.0); Sodium 138 mmol/L (135-145); Total Protein 6.5 g/dL (6.4-8.9); eGFR CKD-EPI 35.7 (>60)
[2022-02-17 17:39] LABS: High Sensitivity Troponin 1 Hr 18 pg/mL (<15)
[2022-02-17 21:14] LABS: % Iron Saturation 25 % (15-55); Iron 76 ug/dL (50-212); Total Iron Binding Capacity 301 mcg/dL (250-450); Transferrin 215 mg/dL (203-362); Unsaturated Iron Binding 225 ug/dL
[2022-02-17 21:36] LABS: Ferritin 161.8 ng/mL (11-307)
[2022-02-17 21:39] LABS: Folate > 20.00 ng/mL (5.90-24.80)
[2022-02-17 21:40] LABS: Vitamin B12 334 pg/mL (180-914)
[2022-02-17] MEDS ORDERED: Albuterol HFA INHALER 8 gm MDI INH PRN (22:14)
[2022-02-17] MEDS ORDERED: Ondansetron 4 mg VIAL 2 MG/ML 2 ml VIAL IV PRN (22:18)
[2022-02-18] MEDS ORDERED: Labetalol IV 5 MG/ML 20 ml VIAL IV PUSH ONE (01:09)
[2022-02-18] MEDS ORDERED: Furosemide 40 mg/4 ml IV VIAL IV ONE (01:17)
[2022-02-18] MEDS ORDERED: Ondansetron ODT 4 mg TAB 4 MG TAB ONE (02:13)
[2022-02-18 06:51] LABS: Hematocrit 31 % (35-47); Hemoglobin 10.7 g/dL (12.0-16.0); Mean Corpuscular HGB Conc 34 g/dL (31-36); Mean Corpuscular Hemoglobin 30 pg (27-31); Mean Corpuscular Volume 89 fL (80-97); Mean Platelet Volume 8.2 fL (7.4-10.4); Platelet Count 191 10^3/uL (150-450); Red Blood Count 3.54 10^6 /uL (3.70-4.87); Red Cell Distribution Width 14 % (10-15); White Blood Count 5.4 10^3/uL (3.5-10.8)
[2022-02-18 07:36] LABS: Calcium 9.6 mg/dL (8.6-10.3); Potassium 4.8 mmol/L (3.5-5.0); eGFR CKD-EPI 35.7 (>60)
[2022-02-18] MEDS ORDERED: Lidocaine PATCH 5% PATCH TRANSDERM ONE (08:12)
[2022-02-18] MEDS ORDERED: LINAGLIPTIN 5 MG PO SCH (09:00)
[2022-02-18] MEDS ORDERED: Pantoprazole VIAL 40 MG VIAL IV SCH (09:00)
[2022-02-18] MEDS ORDERED: Dextrose 50% Syringe 50 ml 25 GM/50 ML SYRINGE IV PUSH PRN (11:39)
[2022-02-18 11:57] LABS: Hematocrit 31 % (35-47); Hemoglobin 10.2 g/dL (12.0-16.0)
[2022-02-18 15:28] VITALS: BP 149/65
== END 2022-02-18 17:50 | disposition home or self-care (01) ==
LOC: MED 15:22 → ED 15:22
PROVIDERS: ADMIT Hospitalist; ATTEND Hospitalist

== ENCOUNTER 2022-05-09 10:00 | Inpatient (IN) ==
[2022-05-09] MEDS ORDERED: Albuterol/Ipratropium NEB.SOL (2.5/0.5 MG) 3 ML NEB.SOLN INH ONE (10:32)
[2022-05-09] MEDS ORDERED: Furosemide 40 mg/4 ml IV VIAL IV ONE (10:33)
[2022-05-09 10:53] LABS: ABS Eosinophils 0.3 10^3/ul (0-0.6); ABS Lymphocytes 1.1 10^3/ul (1.0-4.8); ABS Monocytes 0.4 10^3/ul (0-0.8); ABS Neutrophils 6.1 10^3/ul (1.5-7.7); Eosinophil % 3.3 %; Hematocrit 32 % (35-47); Hemoglobin 10.6 g/dL (12.0-16.0); Lymphocyte % 13.8 %; Mean Corpuscular HGB Conc 33 g/dL (31-36); Mean Corpuscular Hemoglobin 30 pg (27-31); Mean Corpuscular Volume 92 fL (80-97); Platelet Count 209 10^3/uL (150-450); Red Blood Count 3.53 10^6 /uL (3.70-4.87); Red Cell Distribution Width 14 % (10-15); White Blood Count 7.9 10^3/uL (3.5-10.8)
[2022-05-09 11:08] LABS: INR 1.09 (0.89-1.11)
[2022-05-09] MEDS ORDERED: Budesonide NEB 0.25 MG/2 ML NEB.SOLN INH ONE (11:08)
[2022-05-09 11:41] LABS: Albumin 3.6 g/dL (3.2-5.2); Albumin/Globulin Ratio 1.1 (1-3); Calcium 9.3 mg/dL (8.6-10.3); Globulin 3.2 g/dL (2-4); Potassium 3.8 mmol/L (3.5-5.0); Total Bilirubin 0.6 mg/dL (0.2-1.0); Total Protein 6.8 g/dL (6.4-8.9); eGFR CKD-EPI 18.2 (>60)
[2022-05-09 12:46] LABS: High Sensitivity Troponin 1 Hr 30 pg/mL (<15)
[2022-05-09] MEDS ORDERED: Piperacillin/Tazobac ADVAN 3.375 GM in NS 0.9% 100 ml BAG 100 ML IV ONE (13:57)
[2022-05-09] MEDS ORDERED: NS 0.9% 500 ml BAG 500 ML IV ONE (14:08)
[2022-05-09] MEDS ORDERED: methylPREDNISolone SOD SUCC 40 mg/ml 1 ml VIAL IV ONE (14:45)
[2022-05-09] MEDS ORDERED: cefTRIAXone 1 gm/50 mL D5W 1 GM/50 ML BAG IV SCH (15:00)
[2022-05-09] MEDS ORDERED: Dextrose 50% Syringe 50 ml 25 GM/50 ML SYRINGE IV PUSH PRN (15:34)
[2022-05-09] MEDS ORDERED: Albuterol HFA INHALER 8 gm MDI INH PRN (16:01)
[2022-05-09] MEDS ORDERED: Albuterol/Ipratropium NEB.SOL (2.5/0.5 MG) 3 ML NEB.SOLN INH SCH (17:00)
[2022-05-09] MEDS: Enoxaparin 30 MG/0.3 ML SYR SUBCUT SCH (17:05)
[2022-05-09] MEDS: Mometasone/Formoter 200/5 MDI INH SCH (20:06)
[2022-05-09] MEDS: Albuterol/Ipratropium NEB.SOL (2.5/0.5 MG) 3 ML NEB.SOLN INH SCH (20:06)
[2022-05-09] MEDS: Benzocaine/Menthol LOZ MT PRN (22:16)
[2022-05-10] MEDS: Albuterol/Ipratropium NEB.SOL (2.5/0.5 MG) 3 ML NEB.SOLN INH SCH (03:27)
[2022-05-10 06:46] LABS: ABS Lymphocytes 0.2 10^3/ul (1.0-4.8); ABS Monocytes 0.1 10^3/ul (0-0.8); ABS Neutrophils 5.7 10^3/ul (1.5-7.7); Hematocrit 28 % (35-47); Hemoglobin 9.2 g/dL (12.0-16.0); Lymphocyte % 3.2 %; Mean Corpuscular HGB Conc 33 g/dL (31-36); Mean Corpuscular Hemoglobin 30 pg (27-31); Mean Corpuscular Volume 91 fL (80-97); Mean Platelet Volume 9.4 fL (7.4-10.4); Platelet Count 182 10^3/uL (150-450); Red Blood Count 3.04 10^6 /uL (3.70-4.87); Red Cell Distribution Width 14 % (10-15); White Blood Count 5.9 10^3/uL (3.5-10.8)
[2022-05-10 07:19] LABS: Calcium 8.7 mg/dL (8.6-10.3); Magnesium 1.7 mg/dL (1.9-2.7); Potassium 4.5 mmol/L (3.5-5.0); eGFR CKD-EPI 21.9 (>60)
[2022-05-10] MEDS: Mometasone/Formoter 200/5 MDI INH SCH ×2 (07:28→19:36)
[2022-05-10] MEDS ORDERED: Albuterol/Ipratropium NEB.SOL (2.5/0.5 MG) 3 ML NEB.SOLN INH PRN (07:30)
[2022-05-10] MEDS ORDERED: Magnesium Sulfate 2 gm BAG 2 GM/50 ML BAG IVPB ONE (08:00)
[2022-05-10 08:50] LABS: C Reactive Protein 74.66 mg/L (<8.01)
[2022-05-10] MEDS: Aspirin EC 81 mg TAB.EC (enteric coated) PO SCH (09:18)
[2022-05-10] MEDS: cefTRIAXone 1 gm/50 mL D5W 1 GM/50 ML BAG IV SCH (12:57)
[2022-05-10] MEDS: Enoxaparin 30 MG/0.3 ML SYR SUBCUT SCH (17:42)
[2022-05-10] MEDS ORDERED: Insulin GLARGINE 100 un/ml 10 ml VIAL SUBCUT SCH (21:00)
[2022-05-10 21:56] LABS: Glucose Confirmatory 412 mg/dL (70-100)
[2022-05-10] MEDS: Benzocaine/Menthol LOZ MT PRN (22:43)
[2022-05-11] MEDS: Mometasone/Formoter 200/5 MDI INH SCH ×2 (06:51→19:36)
[2022-05-11 07:11] LABS: Calcium 9.3 mg/dL (8.6-10.3); Potassium 4.4 mmol/L (3.5-5.0); eGFR CKD-EPI 22.2 (>60)
[2022-05-11] MEDS: cefTRIAXone 1 gm/50 mL D5W 1 GM/50 ML BAG IV SCH (08:40)
[2022-05-11] MEDS: Aspirin EC 81 mg TAB.EC (enteric coated) PO SCH (08:43)
[2022-05-11] MEDS: Enoxaparin 30 MG/0.3 ML SYR SUBCUT SCH (14:57)
[2022-05-11] MEDS ORDERED: Insulin GLARGINE 100 un/ml 10 ml VIAL SUBCUT SCH ×2 (21:00)
[2022-05-12 07:04] LABS: ABS Lymphocytes 0.5 10^3/ul (1.0-4.8); ABS Monocytes 0.4 10^3/ul (0-0.8); ABS Neutrophils 9.3 10^3/ul (1.5-7.7); Eosinophil % 0.1 %; Hematocrit 33 % (35-47); Hemoglobin 11.3 g/dL (12.0-16.0); Lymphocyte % 4.9 %; Mean Corpuscular HGB Conc 34 g/dL (31-36); Mean Corpuscular Hemoglobin 30 pg (27-31); Mean Corpuscular Volume 89 fL (80-97); Platelet Count 309 10^3/uL (150-450); Red Blood Count 3.75 10^6 /uL (3.70-4.87); Red Cell Distribution Width 14 % (10-15); White Blood Count 10.3 10^3/uL (3.5-10.8)
[2022-05-12 07:18] LABS: Calcium 9.2 mg/dL (8.6-10.3); Magnesium 2.1 mg/dL (1.9-2.7); Potassium 4.6 mmol/L (3.5-5.0); eGFR CKD-EPI 23.3 (>60)
[2022-05-12] MEDS: Mometasone/Formoter 200/5 MDI INH SCH (08:04)
[2022-05-12] MEDS: Aspirin EC 81 mg TAB.EC (enteric coated) PO SCH (09:47)
[2022-05-12] MEDS: cefTRIAXone 1 gm/50 mL D5W 1 GM/50 ML BAG IV SCH (09:49)
[2022-05-12 15:13] VITALS: BP 146/73
== END 2022-05-12 16:15 | disposition home or self-care (01) | DRG 190 ==
LOC: EDHOLD 10:00 → ED 10:00 → SUATTDRO 14:24 → MED 19:44
PROVIDERS: ADMIT Internal Medicine; ATTEND Hospitalist

== ENCOUNTER 2023-05-06 18:03 | Inpatient (IN) ==
[2023-05-06] MEDS ORDERED: Furosemide 100 mg/10 ml IV VIAL IV ONE (18:53)
[2023-05-06 20:24] LABS: ALT 9 U/L (7-52); Albumin 3.9 g/dL (3.2-5.2); Albumin/Globulin Ratio 1.1 (1-3); Alkaline Phosphatase 108 U/L (35-149); Blood Urea Nitrogen 56 mg/dL (6-24); CO2 Carbon Dioxide 27 mmol/L (22-32); Calcium 9.5 mg/dL (8.6-10.3); Chloride 102 mmol/L (101-111); Creatinine, Serum 2.75 mg/dL (0.51-0.95); Globulin 3.4 g/dL (2-4); Glucose 233 mg/dL (70-100); Magnesium 1.7 mg/dL (1.9-2.7); Sodium 141 mmol/L (135-145); Total Bilirubin 0.4 mg/dL (0.2-1.0); Total Protein 7.3 g/dL (6.4-8.9); eGFR CKD-EPI 17.6 (>60)
[2023-05-06 20:29] LABS: High Sens Troponin Baseline 46 pg/mL (<15)
[2023-05-06 20:51] LABS: Anion Gap 12 mmol/L (2-16)
[2023-05-06 21:24] LABS: Potassium Redraw 4.1 mmol/L (3.5-5.0)
[2023-05-06] MEDS ORDERED: Magnesium Sulfate 2 gm BAG 2 GM/50 ML BAG IVPB ONE (22:37)
[2023-05-06] MEDS: Heparin 5000 UNITS/ML 1 mL VIAL SUBCUT SCH (23:31)
[2023-05-06] MEDS ORDERED: Albuterol HFA INHALER 8 gm MDI INH PRN (23:39)
[2023-05-06] MEDS ORDERED: Dextrose 50% Syringe 50 ml 25 GM/50 ML SYRINGE IV PUSH PRN (23:44)
[2023-05-07 01:31] LABS: Urine Appearance Clear; Urine Bilirubin Negative (Negative); Urine Blood 1+ (Negative); Urine Color Colorless; Urine Glucose Negative (Negative); Urine Ketones Negative (Negative); Urine Nitrite Negative (Negative); Urine Protein 2+(100 mg/dL) (Negative); Urine Specific Gravity 1.006 (1.002-1.030); Urine Urobilinogen Negative (Negative)
[2023-05-07 01:36] LABS: Urine Bacteria Absent (Absent); Urine Red Blood Cell Trace(0-2/hpf) (Absent); Urine Squamous Epithelial Cell Present (Absent); Urine White Blood Cell Absent (Absent)
[2023-05-07] MEDS: Heparin 5000 UNITS/ML 1 mL VIAL SUBCUT SCH ×3 (06:08→21:30)
[2023-05-07 07:41] LABS: ABS Basophils 0.1 10^3/uL (0.0-0.1); ABS Eosinophils 0.2 10^3/uL (0.0-0.5); ABS Lymphocytes 1.1 10^3/uL (1.0-4.8); ABS Monocytes 0.4 10^3/uL (0.0-0.9); Eosinophil % 3.5 %; Hematocrit 33.8 % (35-45); Hemoglobin 11.5 g/dL (11.5-14.3); Lymphocyte % 15.5 %; Mean Corpuscular Hemoglobin 29.7 pg (27-33); Mean Corpuscular Hgb Conc 34.1 g/dL (31-36); Mean Corpuscular Volume 87.1 fL (80-97); Mean Platelet Volume 7.5 fL (7.5-11.2); Nucleated Red Blood Cells % 0.1 %/100WBC (0.0-0.8); Platelet Count 259 10^3/uL (150-450); Red Blood Count 3.88 10^6/uL (3.63-4.92); Red Cell Distribution Width 14.3 % (12-17); White Blood Count 6.8 10^3/uL (3.8-11.8)
[2023-05-07 08:07] LABS: Calcium 9.8 mg/dL (8.6-10.3); Creatinine, Serum 2.57 mg/dL (0.51-0.95); Magnesium 1.7 mg/dL (1.9-2.7); Phosphorus 4.2 mg/dL (2.5-5.0); Potassium 4.1 mmol/L (3.5-5.0)
[2023-05-07] MEDS: Ipratropium HFA INHALER(NF) (ALTERNATIVE = NEBS) INH SCH ×4 (08:44→19:31)
[2023-05-07] MEDS: FLUTICAS/UMECLI/VILANT 100-62.5-25 MDI (NF) INH SCH (08:44)
[2023-05-07] MEDS ORDERED: Furosemide 40 mg/4 ml IV VIAL ONE ×2 (08:46→08:56)
[2023-05-07] MEDS: Aspirin EC 81 mg TAB.EC (enteric coated) PO SCH (08:59)
[2023-05-07] MEDS ORDERED: Furosemide 100 mg/10 ml IV VIAL IV SCH ×2 (09:00)
[2023-05-07] MEDS: Furosemide 40 mg/4 ml IV VIAL IV SCH ×2 (10:12→17:56)
[2023-05-07] MEDS ORDERED: Magnesium Sulfate 2 gm BAG 2 GM/50 ML BAG IVPB ONE (10:16)
[2023-05-07] MEDS ORDERED: Magnesium Sulfate IV 1GM/100ML 1 GM/100 ML BAG IV ONE (12:16)
[2023-05-08] MEDS: Heparin 5000 UNITS/ML 1 mL VIAL SUBCUT SCH ×3 (06:18→21:40)
[2023-05-08] MEDS: FLUTICAS/UMECLI/VILANT 100-62.5-25 MDI (NF) INH SCH (07:39)
[2023-05-08] MEDS: Ipratropium HFA INHALER(NF) (ALTERNATIVE = NEBS) INH SCH ×4 (07:39→19:46)
[2023-05-08 07:40] LABS: ABS Basophils 0.1 10^3/uL (0.0-0.1); ABS Eosinophils 0.2 10^3/uL (0.0-0.5); ABS Lymphocytes 0.8 10^3/uL (1.0-4.8); ABS Monocytes 0.5 10^3/uL (0.0-0.9); ABS Neutrophils 4.9 10^3/uL (1.5-7.6); Eosinophil % 3.2 %; Hematocrit 28.9 % (35-45); Hemoglobin 9.9 g/dL (11.5-14.3); Lymphocyte % 12.6 %; Mean Corpuscular Hemoglobin 29.7 pg (27-33); Mean Corpuscular Hgb Conc 34.2 g/dL (31-36); Mean Platelet Volume 7.9 fL (7.5-11.2); Platelet Count 225 10^3/uL (150-450); Red Blood Count 3.32 10^6/uL (3.63-4.92); Red Cell Distribution Width 13.9 % (12-17); White Blood Count 6.5 10^3/uL (3.8-11.8)
[2023-05-08 08:02] LABS: Calcium 9.1 mg/dL (8.6-10.3); Creatinine, Serum 2.99 mg/dL (0.51-0.95); Magnesium 2.5 mg/dL (1.9-2.7); Potassium 4.1 mmol/L (3.5-5.0); eGFR CKD-EPI 15.9 (>60)
[2023-05-08] MEDS: Aspirin EC 81 mg TAB.EC (enteric coated) PO SCH (10:11)
[2023-05-08] MEDS: Furosemide 40 mg/4 ml IV VIAL IV SCH (11:10)
[2023-05-08 17:19] LABS: Calcium 9.1 mg/dL (8.6-10.3); Creatinine, Serum 3.27 mg/dL (0.51-0.95); Potassium 4.5 mmol/L (3.5-5.0); eGFR CKD-EPI 14.3 (>60)
[2023-05-09] MEDS: Heparin 5000 UNITS/ML 1 mL VIAL SUBCUT SCH ×3 (06:13→21:40)
[2023-05-09] MEDS: Ipratropium HFA INHALER(NF) (ALTERNATIVE = NEBS) INH SCH ×4 (07:20→20:07)
[2023-05-09] MEDS: FLUTICAS/UMECLI/VILANT 100-62.5-25 MDI (NF) INH SCH ×2 (07:20→08:40)
[2023-05-09 07:24] LABS: ABS Basophils 0.1 10^3/uL (0.0-0.1); ABS Eosinophils 0.2 10^3/uL (0.0-0.5); ABS Lymphocytes 0.7 10^3/uL (1.0-4.8); ABS Monocytes 0.4 10^3/uL (0.0-0.9); ABS Neutrophils 4.8 10^3/uL (1.5-7.6); ABS Nucleated RBC 0.01 10^3/ul; Eosinophil % 3.2 %; Hematocrit 28.8 % (35-45); Lymphocyte % 11.9 %; Mean Corpuscular Hemoglobin 30.1 pg (27-33); Mean Corpuscular Hgb Conc 34.8 g/dL (31-36); Mean Corpuscular Volume 86.5 fL (80-97); Mean Platelet Volume 7.9 fL (7.5-11.2); Nucleated Red Blood Cells % 0.1 %/100WBC (0.0-0.8); Platelet Count 219 10^3/uL (150-450); Red Blood Count 3.33 10^6/uL (3.63-4.92); Red Cell Distribution Width 14.2 % (12-17); White Blood Count 6.1 10^3/uL (3.8-11.8)
[2023-05-09 07:46] LABS: Creatinine, Serum 3.51 mg/dL (0.51-0.95); Potassium 4.6 mmol/L (3.5-5.0); eGFR CKD-EPI 13.1 (>60)
[2023-05-09] MEDS: Aspirin EC 81 mg TAB.EC (enteric coated) PO SCH (08:39)
[2023-05-09 09:02] LABS: Urine Appearance Cloudy; Urine Bilirubin Negative (Negative); Urine Blood Negative (Negative); Urine Color Yellow; Urine Glucose Negative (Negative); Urine Ketones Negative (Negative); Urine Nitrite Negative (Negative); Urine Protein 2+(100 mg/dL) (Negative); Urine Specific Gravity 1.009 (1.002-1.030); Urine Urobilinogen Negative (Negative)
[2023-05-09 09:35] LABS: Urine Bacteria 1+ (Absent); Urine Red Blood Cell Absent (Absent); Urine Squamous Epithelial Cell Present (Absent); Urine White Blood Cell Absent (Absent)
[2023-05-10 05:42] LABS: ABS Basophils 0.1 10^3/uL (0.0-0.1); ABS Eosinophils 0.2 10^3/uL (0.0-0.5); ABS Lymphocytes 0.9 10^3/uL (1.0-4.8); ABS Monocytes 0.5 10^3/uL (0.0-0.9); ABS Neutrophils 4.9 10^3/uL (1.5-7.6); Eosinophil % 2.7 %; Hematocrit 27.9 % (35-45); Hemoglobin 9.5 g/dL (11.5-14.3); Lymphocyte % 13.1 %; Mean Corpuscular Hemoglobin 29.6 pg (27-33); Mean Corpuscular Volume 87.1 fL (80-97); Mean Platelet Volume 8.1 fL (7.5-11.2); Platelet Count 214 10^3/uL (150-450); Red Cell Distribution Width 13.8 % (12-17); White Blood Count 6.6 10^3/uL (3.8-11.8)
[2023-05-10 06:07] LABS: Creatinine, Serum 4.25 mg/dL (0.51-0.95); Magnesium 2.4 mg/dL (1.9-2.7); Potassium 4.9 mmol/L (3.5-5.0); eGFR CKD-EPI 10.4 (>60)
[2023-05-10] MEDS: Heparin 5000 UNITS/ML 1 mL VIAL SUBCUT SCH ×3 (06:27→22:47)
[2023-05-10] MEDS: Ipratropium HFA INHALER(NF) (ALTERNATIVE = NEBS) INH SCH ×4 (07:35→19:51)
[2023-05-10] MEDS: FLUTICAS/UMECLI/VILANT 100-62.5-25 MDI (NF) INH SCH (07:35)
[2023-05-10] MEDS: Aspirin EC 81 mg TAB.EC (enteric coated) PO SCH (07:59)
[2023-05-10] MEDS: Bumetanide IV 0.25 MG/ML 4 ml VIAL (1 mg) IV SLOW PU SCH ×2 (14:03→22:55)
[2023-05-11] MEDS ORDERED: Ondansetron 4 mg VIAL 2 MG/ML 2 ml VIAL IV ONE ×2 (01:08→09:50)
[2023-05-11] MEDS: Heparin 5000 UNITS/ML 1 mL VIAL SUBCUT SCH ×3 (05:50→22:33)
[2023-05-11] MEDS: Ipratropium HFA INHALER(NF) (ALTERNATIVE = NEBS) INH SCH ×4 (07:32→20:17)
[2023-05-11] MEDS: FLUTICAS/UMECLI/VILANT 100-62.5-25 MDI (NF) INH SCH (07:33)
[2023-05-11 07:52] LABS: ABS Eosinophils 0.1 10^3/uL (0.0-0.5); ABS Lymphocytes 0.5 10^3/uL (1.0-4.8); ABS Monocytes 0.4 10^3/uL (0.0-0.9); ABS Neutrophils 5.2 10^3/uL (1.5-7.6); ABS Nucleated RBC 0.01 10^3/ul; Eosinophil % 1.7 %; Hematocrit 29.3 % (35-45); Hemoglobin 9.7 g/dL (11.5-14.3); Lymphocyte % 7.9 %; Mean Corpuscular Hemoglobin 29.6 pg (27-33); Mean Corpuscular Hgb Conc 33.2 g/dL (31-36); Mean Platelet Volume 7.8 fL (7.5-11.2); Nucleated Red Blood Cells % 0.1 %/100WBC (0.0-0.8); Platelet Count 209 10^3/uL (150-450); Red Blood Count 3.29 10^6/uL (3.63-4.92); Red Cell Distribution Width 14.1 % (12-17); White Blood Count 6.2 10^3/uL (3.8-11.8)
[2023-05-11 08:58] LABS: Calcium 9.1 mg/dL (8.6-10.3); Creatinine, Serum 4.36 mg/dL (0.51-0.95); Potassium 5.3 mmol/L (3.5-5.0); eGFR CKD-EPI 10.1 (>60)
[2023-05-11] MEDS ORDERED: SODIUM ZIRCONIUM CYCLOSILICATE 10 GM PACKET PO ONE (09:36)
[2023-05-11] MEDS: Aspirin EC 81 mg TAB.EC (enteric coated) PO SCH (10:47)
[2023-05-11] MEDS: Bumetanide IV 0.25 MG/ML 4 ml VIAL (1 mg) IV SLOW PU SCH ×2 (11:04→21:39)
[2023-05-11 14:14] LABS: Complement C3 115 mg/dL (75 - 175)
[2023-05-11 14:43] LABS: NT-Pro B-Type Natriuretic Pep 8020 pg/mL (<=540)
[2023-05-11 14:57] LABS: C-ANCA Negative (Negative); P-ANCA Negative (Negative)
[2023-05-11] MEDS: Ondansetron 4 mg VIAL 2 MG/ML 2 ml VIAL IV PRN (22:31)
[2023-05-12 00:12] LABS: Albumin 2.6 g/dL (3.4-4.7); Flag, M-protein Isotype Negative (Negative)
[2023-05-12 06:17] LABS: ABS Eosinophils 0.1 10^3/uL (0.0-0.5); ABS Lymphocytes 0.5 10^3/uL (1.0-4.8); ABS Monocytes 0.4 10^3/uL (0.0-0.9); ABS Neutrophils 3.2 10^3/uL (1.5-7.6); Eosinophil % 2.9 %; Hematocrit 27.5 % (35-45); Hemoglobin 9.4 g/dL (11.5-14.3); Lymphocyte % 11.8 %; Mean Corpuscular Hemoglobin 29.6 pg (27-33); Mean Corpuscular Volume 87.1 fL (80-97); Mean Platelet Volume 8.1 fL (7.5-11.2); Platelet Count 193 10^3/uL (150-450); Red Blood Count 3.16 10^6/uL (3.63-4.92); Red Cell Distribution Width 13.7 % (12-17); White Blood Count 4.2 10^3/uL (3.8-11.8)
[2023-05-12] MEDS: Heparin 5000 UNITS/ML 1 mL VIAL SUBCUT SCH ×3 (06:39→21:18)
[2023-05-12 06:48] LABS: Calcium 9.5 mg/dL (8.6-10.3); Creatinine, Serum 4.54 mg/dL (0.51-0.95); Magnesium 2.3 mg/dL (1.9-2.7); Potassium 4.9 mmol/L (3.5-5.0); eGFR CKD-EPI 9.6 (>60)
[2023-05-12] MEDS: Ipratropium HFA INHALER(NF) (ALTERNATIVE = NEBS) INH SCH ×4 (09:04→19:10)
[2023-05-12] MEDS: FLUTICAS/UMECLI/VILANT 100-62.5-25 MDI (NF) INH SCH (09:04)
[2023-05-12] MEDS: Aspirin EC 81 mg TAB.EC (enteric coated) PO SCH (09:35)
[2023-05-12] MEDS: Bumetanide IV 0.25 MG/ML 4 ml VIAL (1 mg) IV SLOW PU SCH ×2 (09:49→21:16)
[2023-05-12 18:15] LABS: Calcium 9.6 mg/dL (8.6-10.3); Creatinine, Serum 4.46 mg/dL (0.51-0.95); Potassium 4.6 mmol/L (3.5-5.0); eGFR CKD-EPI 9.8 (>60)
[2023-05-13] MEDS: Heparin 5000 UNITS/ML 1 mL VIAL SUBCUT SCH ×3 (05:39→22:23)
[2023-05-13 07:50] LABS: Calcium 9.6 mg/dL (8.6-10.3); Creatinine, Serum 4.33 mg/dL (0.51-0.95); Magnesium 2.3 mg/dL (1.9-2.7); Potassium 4.7 mmol/L (3.5-5.0); eGFR CKD-EPI 10.2 (>60)
[2023-05-13 08:03] LABS: Hemoglobin 9.9 g/dL (11.5-14.3); Mean Corpuscular Hemoglobin 29.6 pg (27-33); Mean Corpuscular Hgb Conc 33.9 g/dL (31-36); Mean Corpuscular Volume 87.1 fL (80-97); Mean Platelet Volume 8.3 fL (7.5-11.2); Platelet Count 217 10^3/uL (150-450); Red Blood Count 3.33 10^6/uL (3.63-4.92); Red Cell Distribution Width 14.1 % (12-17); White Blood Count 4.9 10^3/uL (3.8-11.8)
[2023-05-13 08:04] LABS: Nucleated Red Blood Cells % 0.1 %/100WBC (0.0-0.8)
[2023-05-13 08:08] LABS: ABS Basophils 0.1 10^3/uL (0.0-0.1); ABS Eosinophils 0.1 10^3/uL (0.0-0.5); ABS Lymphocytes 0.5 10^3/uL (1.0-4.8); ABS Monocytes 0.4 10^3/uL (0.0-0.9); ABS Neutrophils 3.8 10^3/uL (1.5-7.6); Eosinophil % 2.7 %; Lymphocyte % 9.6 %; RBC Morphology Normal (Normal)
[2023-05-13] MEDS: FLUTICAS/UMECLI/VILANT 100-62.5-25 MDI (NF) INH SCH (08:24)
[2023-05-13] MEDS: Ipratropium HFA INHALER(NF) (ALTERNATIVE = NEBS) INH SCH ×4 (08:25→20:14)
[2023-05-13] MEDS: Aspirin EC 81 mg TAB.EC (enteric coated) PO SCH (09:10)
[2023-05-13] MEDS: Bumetanide IV 0.25 MG/ML 4 ml VIAL (1 mg) IV SLOW PU SCH ×2 (09:27→22:16)
[2023-05-13 12:51] LABS: Hepatitis B Surface Antigen Nonreactive (Nonreactive)
[2023-05-13 13:08] LABS: Hepatitis B Surface Ab Not Immune (Immune)
[2023-05-14] MEDS: Heparin 5000 UNITS/ML 1 mL VIAL SUBCUT SCH ×3 (05:36→21:24)
[2023-05-14 05:51] LABS: ABS Basophils 0.1 10^3/uL (0.0-0.1); ABS Eosinophils 0.2 10^3/uL (0.0-0.5); ABS Lymphocytes 0.8 10^3/uL (1.0-4.8); ABS Monocytes 0.4 10^3/uL (0.0-0.9); ABS Neutrophils 4.9 10^3/uL (1.5-7.6); ABS Nucleated RBC 0.01 10^3/ul; Eosinophil % 2.8 %; Hematocrit 28.9 % (35-45); Hemoglobin 9.7 g/dL (11.5-14.3); Lymphocyte % 12.5 %; Mean Corpuscular Hemoglobin 29.5 pg (27-33); Mean Corpuscular Hgb Conc 33.7 g/dL (31-36); Mean Corpuscular Volume 87.4 fL (80-97); Mean Platelet Volume 8.1 fL (7.5-11.2); Nucleated Red Blood Cells % 0.1 %/100WBC (0.0-0.8); Platelet Count 222 10^3/uL (150-450); Red Cell Distribution Width 13.8 % (12-17); White Blood Count 6.3 10^3/uL (3.8-11.8)
[2023-05-14 06:23] LABS: Calcium 9.5 mg/dL (8.6-10.3); Creatinine, Serum 4.38 mg/dL (0.51-0.95); Magnesium 2.2 mg/dL (1.9-2.7); Potassium 4.6 mmol/L (3.5-5.0)
[2023-05-14] MEDS: FLUTICAS/UMECLI/VILANT 100-62.5-25 MDI (NF) INH SCH (08:02)
[2023-05-14] MEDS: Ipratropium HFA INHALER(NF) (ALTERNATIVE = NEBS) INH SCH ×4 (08:03→20:16)
[2023-05-14] MEDS: Aspirin EC 81 mg TAB.EC (enteric coated) PO SCH (08:46)
[2023-05-14] MEDS: Bumetanide IV 0.25 MG/ML 4 ml VIAL (1 mg) IV SLOW PU SCH ×2 (10:43→21:28)
[2023-05-14] MEDS: Nystatin TOP POWDER 15 GM BTL TOPICAL SCH ×2 (12:47→23:05)
[2023-05-15] MEDS: Nystatin TOP POWDER 15 GM BTL TOPICAL SCH ×3 (02:37→21:20)
[2023-05-15] MEDS: Heparin 5000 UNITS/ML 1 mL VIAL SUBCUT SCH (06:09)
[2023-05-15 06:32] LABS: ABS Eosinophils 0.2 10^3/uL (0.0-0.5); ABS Lymphocytes 0.7 10^3/uL (1.0-4.8); ABS Monocytes 0.4 10^3/uL (0.0-0.9); ABS Nucleated RBC 0.01 10^3/ul; Eosinophil % 3.3 %; Hematocrit 29.5 % (35-45); Hemoglobin 10.2 g/dL (11.5-14.3); Lymphocyte % 13.3 %; Mean Corpuscular Hemoglobin 29.9 pg (27-33); Mean Corpuscular Hgb Conc 34.4 g/dL (31-36); Mean Corpuscular Volume 86.9 fL (80-97); Mean Platelet Volume 8.1 fL (7.5-11.2); Nucleated Red Blood Cells % 0.2 %/100WBC (0.0-0.8); Platelet Count 241 10^3/uL (150-450); Red Cell Distribution Width 14.3 % (12-17); White Blood Count 5.3 10^3/uL (3.8-11.8)
[2023-05-15 06:46] LABS: Calcium 9.4 mg/dL (8.6-10.3); Creatinine, Serum 4.57 mg/dL (0.51-0.95); Magnesium 2.1 mg/dL (1.9-2.7); Potassium 4.5 mmol/L (3.5-5.0); eGFR CKD-EPI 9.5 (>60)
[2023-05-15] MEDS: FLUTICAS/UMECLI/VILANT 100-62.5-25 MDI (NF) INH SCH (07:54)
[2023-05-15] MEDS: Ipratropium HFA INHALER(NF) (ALTERNATIVE = NEBS) INH SCH ×4 (07:54→19:57)
[2023-05-15] MEDS: Aspirin EC 81 mg TAB.EC (enteric coated) PO SCH (09:44)
[2023-05-15] MEDS: Bumetanide IV 0.25 MG/ML 4 ml VIAL (1 mg) IV SLOW PU SCH ×2 (09:47→21:19)
[2023-05-16] MEDS: Ipratropium HFA INHALER(NF) (ALTERNATIVE = NEBS) INH SCH ×4 (07:56→19:10)
[2023-05-16] MEDS: FLUTICAS/UMECLI/VILANT 100-62.5-25 MDI (NF) INH SCH (07:56)
[2023-05-16 08:35] LABS: Calcium 9.1 mg/dL (8.6-10.3); Creatinine, Serum 4.33 mg/dL (0.51-0.95); Potassium 4.8 mmol/L (3.5-5.0); eGFR CKD-EPI 10.2 (>60)
[2023-05-16] MEDS: Nystatin TOP POWDER 15 GM BTL TOPICAL SCH ×2 (10:17→21:32)
[2023-05-16] MEDS: Aspirin EC 81 mg TAB.EC (enteric coated) PO SCH (10:28)
[2023-05-16] MEDS: Bumetanide IV 0.25 MG/ML 4 ml VIAL (1 mg) IV SLOW PU SCH ×2 (10:32→18:15)
[2023-05-16] MEDS ORDERED: Dextrose 50% Syringe 50 ml 25 GM/50 ML SYRINGE IV PUSH PRN (18:31)
[2023-05-16] MEDS ORDERED: Ipratropium HFA INHALER(NF) (ALTERNATIVE = NEBS) INH PRN (19:09)
[2023-05-16] MEDS: Insulin GLARGINE 100 un/ml 10 ml VIAL SUBCUT SCH (21:28)
[2023-05-17 07:20] LABS: ABS Eosinophils 0.2 10^3/uL (0.0-0.5); ABS Lymphocytes 0.9 10^3/uL (1.0-4.8); ABS Monocytes 0.4 10^3/uL (0.0-0.9); ABS Neutrophils 4.1 10^3/uL (1.5-7.6); Eosinophil % 3.4 %; Hematocrit 29.2 % (35-45); Hemoglobin 10.1 g/dL (11.5-14.3); Lymphocyte % 15.7 %; Mean Corpuscular Hemoglobin 29.8 pg (27-33); Mean Corpuscular Hgb Conc 34.4 g/dL (31-36); Mean Corpuscular Volume 86.7 fL (80-97); Mean Platelet Volume 7.9 fL (7.5-11.2); Nucleated Red Blood Cells % 0.1 %/100WBC (0.0-0.8); Platelet Count 242 10^3/uL (150-450); Red Blood Count 3.37 10^6/uL (3.63-4.92); Red Cell Distribution Width 13.9 % (12-17); White Blood Count 5.7 10^3/uL (3.8-11.8)
[2023-05-17 07:39] LABS: Calcium 9.4 mg/dL (8.6-10.3); Creatinine, Serum 4.61 mg/dL (0.51-0.95); Potassium 4.3 mmol/L (3.5-5.0); eGFR CKD-EPI 9.4 (>60)
[2023-05-17] MEDS: FLUTICAS/UMECLI/VILANT 100-62.5-25 MDI (NF) INH SCH (09:24)
[2023-05-17] MEDS: Aspirin EC 81 mg TAB.EC (enteric coated) PO SCH (09:27)
[2023-05-17 11:36] LABS: Creatinine, Serum 4.59 mg/dL (0.51-0.95); eGFR CKD-EPI 9.5 (>60)
[2023-05-17] MEDS: Nystatin TOP POWDER 15 GM BTL TOPICAL SCH ×2 (11:55→22:48)
[2023-05-17] MEDS ORDERED: NS 0.9% 1000 ml BAG 100 ML IV PRN (14:22)
[2023-05-17] MEDS ORDERED: NS 0.9% 1000 ml BAG 200 ML IV PRN (14:22)
[2023-05-17] MEDS: Bumetanide IV 0.25 MG/ML 4 ml VIAL (1 mg) IV SLOW PU SCH ×2 (14:46→18:28)
[2023-05-17] MEDS: Heparin 5000 UNITS/ML 1 mL VIAL SUBCUT SCH (21:35)
[2023-05-17] MEDS: Insulin GLARGINE 100 un/ml 10 ml VIAL SUBCUT SCH (21:36)
[2023-05-18 08:09] LABS: Calcium 9.5 mg/dL (8.6-10.3); Creatinine, Serum 4.64 mg/dL (0.51-0.95); Potassium 4.6 mmol/L (3.5-5.0); eGFR CKD-EPI 9.4 (>60)
[2023-05-18] MEDS: Nystatin TOP POWDER 15 GM BTL TOPICAL SCH ×2 (10:16→21:36)
[2023-05-18] MEDS: FLUTICAS/UMECLI/VILANT 100-62.5-25 MDI (NF) INH SCH (10:49)
[2023-05-18] MEDS: Aspirin EC 81 mg TAB.EC (enteric coated) PO SCH (10:55)
[2023-05-18] MEDS: Heparin 5000 UNITS/ML 1 mL VIAL SUBCUT SCH ×2 (10:56→21:32)
[2023-05-18] MEDS: Bumetanide IV 0.25 MG/ML 4 ml VIAL (1 mg) IV SLOW PU SCH ×2 (13:11→17:58)
[2023-05-18] MEDS: Heparin 1,000 UNIT/ML 10 ml (10,000 UNITS) CATHLAB/DIALYSIS DIALYSIS PRN ×3 (14:10→17:05)
[2023-05-18] MEDS: Insulin GLARGINE 100 un/ml 10 ml VIAL SUBCUT SCH (21:33)
[2023-05-19] MEDS: Ondansetron 4 mg VIAL 2 MG/ML 2 ml VIAL IV PRN ×2 (02:39→17:30)
[2023-05-19 06:29] LABS: ABS Basophils 0.1 10^3/uL (0.0-0.1); ABS Eosinophils 0.2 10^3/uL (0.0-0.5); ABS Lymphocytes 0.8 10^3/uL (1.0-4.8); ABS Monocytes 0.5 10^3/uL (0.0-0.9); ABS Neutrophils 5.9 10^3/uL (1.5-7.6); ABS Nucleated RBC 0.01 10^3/ul; Hemoglobin 10.8 g/dL (11.5-14.3); Lymphocyte % 10.2 %; Mean Corpuscular Hemoglobin 29.9 pg (27-33); Mean Corpuscular Hgb Conc 34.8 g/dL (31-36); Mean Corpuscular Volume 85.9 fL (80-97); Nucleated Red Blood Cells % 0.2 %/100WBC (0.0-0.8); Platelet Count 283 10^3/uL (150-450); Red Cell Distribution Width 13.8 % (12-17); White Blood Count 7.4 10^3/uL (3.8-11.8)
[2023-05-19 06:41] LABS: Calcium 9.4 mg/dL (8.6-10.3); Creatinine, Serum 3.66 mg/dL (0.51-0.95); Magnesium 1.9 mg/dL (1.9-2.7); Phosphorus 4.9 mg/dL (2.5-5.0); Potassium 4.5 mmol/L (3.5-5.0); eGFR CKD-EPI 12.5 (>60)
[2023-05-19] MEDS: FLUTICAS/UMECLI/VILANT 100-62.5-25 MDI (NF) INH SCH (08:36)
[2023-05-19] MEDS: Heparin 1,000 UNIT/ML 10 ml (10,000 UNITS) CATHLAB/DIALYSIS DIALYSIS PRN ×3 (08:55→11:40)
[2023-05-19] MEDS: Aspirin EC 81 mg TAB.EC (enteric coated) PO SCH (12:19)
[2023-05-19] MEDS: Heparin 5000 UNITS/ML 1 mL VIAL SUBCUT SCH ×2 (12:20→22:29)
[2023-05-19] MEDS: Nystatin TOP POWDER 15 GM BTL TOPICAL SCH ×2 (12:20→23:54)
[2023-05-19] MEDS: Bumetanide IV 0.25 MG/ML 4 ml VIAL (1 mg) IV SLOW PU SCH ×2 (13:32→19:30)
[2023-05-19] MEDS: Insulin GLARGINE 100 un/ml 10 ml VIAL SUBCUT SCH (22:31)
[2023-05-20 05:53] LABS: ABS Basophils 0.1 10^3/uL (0.0-0.1); ABS Eosinophils 0.2 10^3/uL (0.0-0.5); ABS Lymphocytes 0.9 10^3/uL (1.0-4.8); ABS Monocytes 0.7 10^3/uL (0.0-0.9); ABS Neutrophils 5.8 10^3/uL (1.5-7.6); ABS Nucleated RBC 0.01 10^3/ul; Eosinophil % 2.8 %; Hematocrit 31.7 % (35-45); Lymphocyte % 11.2 %; Mean Corpuscular Hemoglobin 29.6 pg (27-33); Mean Corpuscular Hgb Conc 34.8 g/dL (31-36); Mean Platelet Volume 7.5 fL (7.5-11.2); Nucleated Red Blood Cells % 0.2 %/100WBC (0.0-0.8); Platelet Count 275 10^3/uL (150-450); Red Blood Count 3.72 10^6/uL (3.63-4.92); Red Cell Distribution Width 13.9 % (12-17); White Blood Count 7.7 10^3/uL (3.8-11.8)
[2023-05-20 06:19] LABS: Calcium 9.7 mg/dL (8.6-10.3); Creatinine, Serum 3.64 mg/dL (0.51-0.95); Magnesium 1.7 mg/dL (1.9-2.7); Potassium 4.4 mmol/L (3.5-5.0); eGFR CKD-EPI 12.5 (>60)
[2023-05-20] MEDS ORDERED: Magnesium Sulfate 2 gm BAG 2 GM/50 ML BAG IVPB ONE (08:19)
[2023-05-20] MEDS ORDERED: Polyethylene Glycol 3350 17 GM PACKET PO PRN (08:23)
[2023-05-20] MEDS ORDERED: Senna TAB 8.6 mg TAB PO PRN (08:23)
[2023-05-20] MEDS ORDERED: Magnesium Hydroxide LIQ 30 ML UDC PO PRN (08:23)
[2023-05-20] MEDS ORDERED: Lactulose 30 ml UDC PO ONE (08:24)
[2023-05-20] MEDS: Heparin 5000 UNITS/ML 1 mL VIAL SUBCUT SCH ×2 (09:17→21:24)
[2023-05-20] MEDS: Aspirin EC 81 mg TAB.EC (enteric coated) PO SCH (09:17)
[2023-05-20] MEDS: FLUTICAS/UMECLI/VILANT 100-62.5-25 MDI (NF) INH SCH (10:00)
[2023-05-20] MEDS: Heparin 1,000 UNIT/ML 10 ml (10,000 UNITS) CATHLAB/DIALYSIS DIALYSIS PRN ×4 (10:03→13:00)
[2023-05-20] MEDS: Albumin Human 25% 25 GM/100 ML BTL IV PRN ×2 (11:21→12:33)
[2023-05-20] MEDS: Bumetanide IV 0.25 MG/ML 4 ml VIAL (1 mg) IV SLOW PU SCH ×2 (14:08→19:39)
[2023-05-20] MEDS: Nystatin TOP POWDER 15 GM BTL TOPICAL SCH (14:56)
[2023-05-20] MEDS: Insulin GLARGINE 100 un/ml 10 ml VIAL SUBCUT SCH (21:26)
[2023-05-20] MEDS: Ondansetron 4 mg VIAL 2 MG/ML 2 ml VIAL IV PRN (21:35)
[2023-05-21] MEDS: Nystatin TOP POWDER 15 GM BTL TOPICAL SCH ×3 (00:26→21:30)
[2023-05-21 07:14] LABS: Calcium 10.6 mg/dL (8.6-10.3); Creatinine, Serum 3.82 mg/dL (0.51-0.95); Phosphorus 4.9 mg/dL (2.5-5.0); Potassium 4.2 mmol/L (3.5-5.0); eGFR CKD-EPI 11.8 (>60)
[2023-05-21] MEDS: Ondansetron 4 mg VIAL 2 MG/ML 2 ml VIAL IV PRN (09:01)
[2023-05-21] MEDS: Aspirin EC 81 mg TAB.EC (enteric coated) PO SCH (09:08)
[2023-05-21] MEDS: Heparin 5000 UNITS/ML 1 mL VIAL SUBCUT SCH ×2 (09:09→21:47)
[2023-05-21] MEDS: FLUTICAS/UMECLI/VILANT 100-62.5-25 MDI (NF) INH SCH (09:11)
[2023-05-21] MEDS: Bumetanide IV 0.25 MG/ML 4 ml VIAL (1 mg) IV SLOW PU SCH ×2 (12:46→17:52)
[2023-05-21] MEDS: Insulin GLARGINE 100 un/ml 10 ml VIAL SUBCUT SCH (21:48)
[2023-05-22 06:16] LABS: ABS Basophils 0.1 10^3/uL (0.0-0.1); ABS Eosinophils 0.2 10^3/uL (0.0-0.5); ABS Monocytes 0.9 10^3/uL (0.0-0.9); ABS Neutrophils 6.9 10^3/uL (1.5-7.6); ABS Nucleated RBC 0.01 10^3/ul; Eosinophil % 2.1 %; Hemoglobin 11.8 g/dL (11.5-14.3); Lymphocyte % 10.7 %; Mean Corpuscular Hemoglobin 29.9 pg (27-33); Mean Corpuscular Hgb Conc 34.8 g/dL (31-36); Mean Corpuscular Volume 85.8 fL (80-97); Mean Platelet Volume 7.6 fL (7.5-11.2); Nucleated Red Blood Cells % 0.1 %/100WBC (0.0-0.8); Platelet Count 307 10^3/uL (150-450); Red Blood Count 3.97 10^6/uL (3.63-4.92); White Blood Count 9.1 10^3/uL (3.8-11.8)
[2023-05-22 06:34] LABS: Calcium 10.4 mg/dL (8.6-10.3); Creatinine, Serum 5.61 mg/dL (0.51-0.95); Potassium 4.7 mmol/L (3.5-5.0); eGFR CKD-EPI 7.5 (>60)
[2023-05-22] MEDS: FLUTICAS/UMECLI/VILANT 100-62.5-25 MDI (NF) INH SCH (07:36)
[2023-05-22] MEDS: Heparin 5000 UNITS/ML 1 mL VIAL SUBCUT SCH ×2 (08:53→21:11)
[2023-05-22] MEDS: Aspirin EC 81 mg TAB.EC (enteric coated) PO SCH (08:53)
[2023-05-22] MEDS: Heparin 1,000 UNIT/ML 10 ml (10,000 UNITS) CATHLAB/DIALYSIS DIALYSIS PRN ×2 (11:00→14:00)
[2023-05-22] MEDS: Nystatin TOP POWDER 15 GM BTL TOPICAL SCH ×2 (11:39→23:36)
[2023-05-22] MEDS: Albumin Human 25% 25 GM/100 ML BTL IV PRN ×2 (11:45→13:08)
[2023-05-22] MEDS: Bumetanide IV 0.25 MG/ML 4 ml VIAL (1 mg) IV SLOW PU SCH ×2 (15:24→22:52)
[2023-05-22] MEDS: Ondansetron 4 mg VIAL 2 MG/ML 2 ml VIAL IV PRN (19:57)
[2023-05-22] MEDS ORDERED: Bumetanide IV 0.25 MG/ML 4 ml VIAL (1 mg) IV SLOW PU SCH (21:00)
[2023-05-22] MEDS: Insulin GLARGINE 100 un/ml 10 ml VIAL SUBCUT SCH (21:16)
[2023-05-23 08:06] LABS: Calcium 10.7 mg/dL (8.6-10.3); Creatinine, Serum 4.85 mg/dL (0.51-0.95); Magnesium 1.9 mg/dL (1.9-2.7); Phosphorus 5.2 mg/dL (2.5-5.0); Potassium 4.4 mmol/L (3.5-5.0); eGFR CKD-EPI 8.9 (>60)
[2023-05-23] MEDS: FLUTICAS/UMECLI/VILANT 100-62.5-25 MDI (NF) INH SCH (08:27)
[2023-05-23] MEDS: Aspirin EC 81 mg TAB.EC (enteric coated) PO SCH (08:39)
[2023-05-23] MEDS: Heparin 5000 UNITS/ML 1 mL VIAL SUBCUT SCH ×2 (08:40→21:42)
[2023-05-23] MEDS: Nystatin TOP POWDER 15 GM BTL TOPICAL SCH ×2 (08:44→21:42)
[2023-05-23] MEDS: Bumetanide IV 0.25 MG/ML 10 ml VIAL (2.5 mg) IV SLOW PU SCH ×2 (13:51→18:22)
[2023-05-23] MEDS: Bumetanide IV 0.25 MG/ML 4 ml VIAL (1 mg) IV SLOW PU SCH (13:59)
[2023-05-23] MEDS: Insulin GLARGINE 100 un/ml 10 ml VIAL SUBCUT SCH (21:42)
[2023-05-23 22:38] LABS: Calcium (PTH Intact) 10.8 mg/dL (8.6-10.3)
[2023-05-24] MEDS: Ondansetron 4 mg VIAL 2 MG/ML 2 ml VIAL IV PRN ×2 (06:29→19:17)
[2023-05-24] MEDS: FLUTICAS/UMECLI/VILANT 100-62.5-25 MDI (NF) INH SCH (06:30)
[2023-05-24 07:18] LABS: Calcium 10.4 mg/dL (8.6-10.3); Creatinine, Serum 6.17 mg/dL (0.51-0.95); Phosphorus 6.8 mg/dL (2.5-5.0); Potassium 4.6 mmol/L (3.5-5.0); eGFR CKD-EPI 6.7 (>60)
[2023-05-24 07:57] LABS: ABS Basophils 0.1 10^3/uL (0.0-0.1); ABS Eosinophils 0.1 10^3/uL (0.0-0.5); ABS Neutrophils 7.4 10^3/uL (1.5-7.6); ABS Nucleated RBC 0.01 10^3/ul; Eosinophil % 1.4 %; Hematocrit 33.4 % (35-45); Hemoglobin 11.4 g/dL (11.5-14.3); Lymphocyte % 10.7 %; Mean Corpuscular Hemoglobin 29.2 pg (27-33); Mean Corpuscular Hgb Conc 34.1 g/dL (31-36); Mean Corpuscular Volume 85.5 fL (80-97); Nucleated Red Blood Cells % 0.1 %/100WBC (0.0-0.8); Platelet Count 295 10^3/uL (150-450); Red Blood Count 3.91 10^6/uL (3.63-4.92); Red Cell Distribution Width 13.6 % (12-17); White Blood Count 9.6 10^3/uL (3.8-11.8)
[2023-05-24] MEDS: Heparin 5000 UNITS/ML 1 mL VIAL SUBCUT SCH ×2 (10:32→21:04)
[2023-05-24] MEDS: Aspirin EC 81 mg TAB.EC (enteric coated) PO SCH (10:33)
[2023-05-24] MEDS: Nystatin TOP POWDER 15 GM BTL TOPICAL SCH ×2 (10:33→21:04)
[2023-05-24] MEDS: Bumetanide IV 0.25 MG/ML 10 ml VIAL (2.5 mg) IV SLOW PU SCH ×2 (12:54→18:12)
[2023-05-24] MEDS: Insulin GLARGINE 100 un/ml 10 ml VIAL SUBCUT SCH (21:09)
[2023-05-25 06:01] LABS: Calcium 10.2 mg/dL (8.6-10.3); Creatinine, Serum 7.83 mg/dL (0.51-0.95); Potassium 4.9 mmol/L (3.5-5.0)
[2023-05-25] MEDS: FLUTICAS/UMECLI/VILANT 100-62.5-25 MDI (NF) INH SCH (08:36)
[2023-05-25] MEDS: Aspirin EC 81 mg TAB.EC (enteric coated) PO SCH (08:37)
[2023-05-25] MEDS: Heparin 5000 UNITS/ML 1 mL VIAL SUBCUT SCH ×2 (08:40→21:12)
[2023-05-25] MEDS: Nystatin TOP POWDER 15 GM BTL TOPICAL SCH ×2 (08:40→22:45)
[2023-05-25] MEDS: Bumetanide IV 0.25 MG/ML 10 ml VIAL (2.5 mg) IV SLOW PU SCH (12:56)
[2023-05-25] MEDS: Heparin 1,000 UNIT/ML 10 ml (10,000 UNITS) CATHLAB/DIALYSIS DIALYSIS PRN ×3 (13:46→17:20)
[2023-05-25] MEDS: Albumin Human 25% 25 GM/100 ML BTL IV PRN (15:01)
[2023-05-25] MEDS: Insulin GLARGINE 100 un/ml 10 ml VIAL SUBCUT SCH (22:45)
[2023-05-25] MEDS: Ondansetron 4 mg VIAL 2 MG/ML 2 ml VIAL IV PRN (22:45)
[2023-05-26 06:05] LABS: Calcium 10.3 mg/dL (8.6-10.3); Creatinine, Serum 4.85 mg/dL (0.51-0.95); Potassium 4.3 mmol/L (3.5-5.0); eGFR CKD-EPI 8.9 (>60)
[2023-05-26] MEDS: FLUTICAS/UMECLI/VILANT 100-62.5-25 MDI (NF) INH SCH (07:22)
[2023-05-26 07:36] LABS: Magnesium 1.8 mg/dL (1.9-2.7); Phosphorus 5.2 mg/dL (2.5-5.0)
[2023-05-26] MEDS: Aspirin EC 81 mg TAB.EC (enteric coated) PO SCH (10:38)
[2023-05-26] MEDS: Nystatin TOP POWDER 15 GM BTL TOPICAL SCH ×2 (10:41→22:09)
[2023-05-26] MEDS: Heparin 5000 UNITS/ML 1 mL VIAL SUBCUT SCH ×2 (10:44→21:20)
[2023-05-26] MEDS ORDERED: Magnesium Sulfate 2 gm BAG 2 GM/50 ML BAG IVPB ONE (11:51)
[2023-05-26] MEDS ORDERED: Clindamycin 600 MG/D5W BAG 600 MG/50 ML BAG IV ONE (12:00)
[2023-05-26 13:21] LABS: Lambda Free Light Chain, S 12.7 mg/dL
[2023-05-26] MEDS ORDERED: fentaNYL 100 mcg/2 ml 50 MCG/ML VIAL ONE (14:42)
[2023-05-26] MEDS ORDERED: Heparin 1,000 UNIT/ML 10 ml (10,000 UNITS) CATHLAB/DIALYSIS ONE (14:42)
[2023-05-26] MEDS ORDERED: Midazolam 5 mg/5 ml VIAL 1 mg/ml 5 ml VIAL (5 mg) ONE (14:42)
[2023-05-26] MEDS ORDERED: Heparin 2 UNITS/ML 1000 mls 1,000 ML IV ONE (14:42)
[2023-05-26] MEDS ORDERED: Lidocaine 1% MPF 5 ML VIAL ONE (14:42)
[2023-05-26] MEDS ORDERED: Iohexol 350 (CONTRAST) 100 ML PAK IV ONE (15:05)
[2023-05-26 16:14] LABS: Myeloperoxidase Antibody <0.2 U; Proteinase 3 <0.2 U
[2023-05-26] MEDS: Insulin GLARGINE 100 un/ml 10 ml VIAL SUBCUT SCH (21:19)
[2023-05-27] MEDS: Ondansetron 4 mg VIAL 2 MG/ML 2 ml VIAL IV PRN ×2 (01:07→12:13)
[2023-05-27 06:39] LABS: Calcium 10.2 mg/dL (8.6-10.3); Creatinine, Serum 6.23 mg/dL (0.51-0.95); Magnesium 2.7 mg/dL (1.9-2.7); Potassium 4.8 mmol/L (3.5-5.0); eGFR CKD-EPI 6.6 (>60)
[2023-05-27] MEDS: FLUTICAS/UMECLI/VILANT 100-62.5-25 MDI (NF) INH SCH (07:45)
[2023-05-27] MEDS: Heparin 1,000 UNIT/ML 10 ml (10,000 UNITS) CATHLAB/DIALYSIS DIALYSIS PRN ×3 (08:10→11:04)
[2023-05-27 08:13] LABS: Glucose Confirmatory 402 mg/dL (70-100)
[2023-05-27 09:11] LABS: Phosphorus 7.2 mg/dL (2.5-5.0)
[2023-05-27] MEDS: Albumin Human 25% 25 GM/100 ML BTL IV PRN (09:26)
[2023-05-27] MEDS: Aspirin EC 81 mg TAB.EC (enteric coated) PO SCH (09:35)
[2023-05-27] MEDS: Heparin 5000 UNITS/ML 1 mL VIAL SUBCUT SCH ×2 (12:08→21:27)
[2023-05-27 15:44] LABS: XCalcitriol <8.0 pg/mL (18-78)
[2023-05-27] MEDS: Insulin GLARGINE 100 un/ml 10 ml VIAL SUBCUT SCH (21:26)
[2023-05-28 06:21] LABS: Calcium 10.3 mg/dL (8.6-10.3); Creatinine, Serum 5.04 mg/dL (0.51-0.95); Potassium 4.2 mmol/L (3.5-5.0); eGFR CKD-EPI 8.5 (>60)
[2023-05-28] MEDS: Heparin 5000 UNITS/ML 1 mL VIAL SUBCUT SCH ×2 (08:49→21:06)
[2023-05-28] MEDS: Aspirin EC 81 mg TAB.EC (enteric coated) PO SCH (08:50)
[2023-05-28] MEDS: FLUTICAS/UMECLI/VILANT 100-62.5-25 MDI (NF) INH SCH (08:55)
[2023-05-28 13:04] LABS: Glucose Confirmatory 465 mg/dL (70-100)
[2023-05-28] MEDS: Insulin GLARGINE 100 un/ml 10 ml VIAL SUBCUT SCH (21:05)
[2023-05-28] MEDS: Ondansetron 4 mg VIAL 2 MG/ML 2 ml VIAL IV PRN (22:47)
[2023-05-29 06:43] LABS: Calcium 10.2 mg/dL (8.6-10.3); Creatinine, Serum 6.4 mg/dL (0.51-0.95); Magnesium 2.2 mg/dL (1.9-2.7); Phosphorus 5.3 mg/dL (2.5-5.0); Potassium 4.5 mmol/L (3.5-5.0); eGFR CKD-EPI 6.4 (>60)
[2023-05-29] MEDS: Heparin 1,000 UNIT/ML 10 ml (10,000 UNITS) CATHLAB/DIALYSIS DIALYSIS PRN ×3 (08:00→11:15)
[2023-05-29] MEDS: Albumin Human 25% 25 GM/100 ML BTL IV PRN (09:40)
[2023-05-29] MEDS: Heparin 5000 UNITS/ML 1 mL VIAL SUBCUT SCH (11:56)
[2023-05-29] MEDS: Aspirin EC 81 mg TAB.EC (enteric coated) PO SCH (11:57)
[2023-05-29] MEDS: FLUTICAS/UMECLI/VILANT 100-62.5-25 MDI (NF) INH SCH (11:59)
[2023-05-29 19:43] VITALS: BP 135/65
== END 2023-05-29 20:56 | disposition home or self-care (01) | DRG 292 ==
LOC: EDHOLD 18:03 → ED 18:03 → SUATTDRO 22:35 → SSU 05-07 → SUATTDRO 05-08 10:10
PROVIDERS: ADMIT Internal Medicine; ATTEND Internal Medicine

== ENCOUNTER 2023-06-25 22:19 | Observation (INO) ==
[2023-06-25] MEDS ORDERED: methylPREDNISolone SOD SUCC 125 mg 2 ML VIAL IV ONE (22:46)
[2023-06-25] MEDS ORDERED: Albuterol/Ipratropium NEB.SOL (2.5/0.5 MG) 3 ML NEB.SOLN INH ONE (22:46)
[2023-06-26 00:36] LABS: ABS Basophils 0.1 10^3/uL (0.0-0.1); ABS Eosinophils 0.2 10^3/uL (0.0-0.5); ABS Lymphocytes 1.3 10^3/uL (1.0-4.8); ABS Monocytes 0.4 10^3/uL (0.0-0.9); ABS Neutrophils 4.7 10^3/uL (1.5-7.6); Eosinophil % 2.7 %; Hematocrit 30.3 % (35-45); Hemoglobin 10.4 g/dL (11.5-14.3); Lymphocyte % 19.2 %; Mean Corpuscular Hemoglobin 29.7 pg (27-33); Mean Corpuscular Hgb Conc 34.3 g/dL (31-36); Mean Corpuscular Volume 86.7 fL (80-97); Mean Platelet Volume 7.8 fL (7.5-11.2); Platelet Count 189 10^3/uL (150-450); Red Blood Count 3.49 10^6/uL (3.63-4.92); Red Cell Distribution Width 14.4 % (12-17); White Blood Count 6.5 10^3/uL (3.8-11.8)
[2023-06-26 00:55] LABS: Albumin 3.7 g/dL (3.2-5.2); Albumin/Globulin Ratio 1.1 (1-3); Calcium 9.1 mg/dL (8.6-10.3); Creatinine, Serum 2.72 mg/dL (0.51-0.95); Globulin 3.3 g/dL (2-4); Potassium 3.5 mmol/L (3.5-5.0); Total Bilirubin 0.4 mg/dL (0.2-1.0); eGFR CKD-EPI 17.8 (>60)
[2023-06-26] MEDS ORDERED: Albuterol/Ipratropium NEB.SOL (2.5/0.5 MG) 3 ML NEB.SOLN INH ONE (01:10)
[2023-06-26] MEDS ORDERED: Albuterol/Ipratropium NEB.SOL (2.5/0.5 MG) 3 ML NEB.SOLN INH PRN (01:39)
[2023-06-26 02:00] LABS: High Sensitivity Troponin 1 Hr 40 pg/mL (<15)
[2023-06-26] MEDS ORDERED: Azithromycin 500 mg/250 ml NS 500 MG/250 ML BAG IVPB SCH (02:00)
[2023-06-26] MEDS ORDERED: methylPREDNISolone SOD SUCC 40 mg/ml 1 ml VIAL IV SCH ×2 (02:00→12:00)
[2023-06-26] MEDS ORDERED: Dextrose 50% Syringe 50 ml 25 GM/50 ML SYRINGE IV PUSH PRN (02:18)
[2023-06-26] MEDS ORDERED: cefTRIAXone 1 gm/50 mL D5W 1 GM/50 ML BAG IV SCH (02:30)
[2023-06-26] MEDS ORDERED: Albuterol/Ipratropium NEB.SOL (2.5/0.5 MG) 3 ML NEB.SOLN INH SCH (03:00)
[2023-06-26] MEDS ORDERED: Senna TAB 8.6 mg TAB PO PRN (03:39)
[2023-06-26] MEDS ORDERED: Magnesium Hydroxide LIQ 30 ML UDC PO PRN (03:39)
[2023-06-26 04:02] LABS: Phosphorus 2.9 mg/dL (2.5-5.0)
[2023-06-26 05:06] LABS: Rapid Strep Molecular Negative (Negative)
[2023-06-26] MEDS ORDERED: FLUTICAS/UMECLI/VILANT 100-62.5-25 MDI (NF) INH SCH (09:00)
[2023-06-26] MEDS ORDERED: SPIRIVA Respimat (tiotropium) 2.5 mcg/inh Inhaler INH SCH (09:00)
[2023-06-26] MEDS ORDERED: Aspirin EC 81 mg TAB.EC (enteric coated) PO SCH (09:00)
[2023-06-26] MEDS ORDERED: Pantoprazole VIAL 40 MG VIAL IV SCH (09:00)
[2023-06-26 13:05] LABS: Glucose Confirmatory 476 mg/dL (70-100)
[2023-06-26 13:47] VITALS: BP 168/94
== END 2023-06-26 13:46 | disposition home or self-care (01) ==
LOC: EDHOLD 22:19 → ED 22:19 → SUATTDRO 06-26 01:27 → EDHOLD 06-26 13:45
PROVIDERS: ADMIT Student in an Organized Health Care Education/Training Program; ATTEND Hospitalist

== ENCOUNTER 2023-06-27 18:43 | Observation (INO) ==
[2023-06-27] MEDS ORDERED: Pantoprazole VIAL 40 MG VIAL IV ONE (19:43)
[2023-06-27 20:29] LABS: ABS Lymphocytes 0.4 10^3/uL (1.0-4.8); ABS Monocytes 0.3 10^3/uL (0.0-0.9); ABS Neutrophils 8.7 10^3/uL (1.5-7.6); Hematocrit 32.9 % (35-45); Hemoglobin 10.9 g/dL (11.5-14.3); Lymphocyte % 4.6 %; Mean Corpuscular Hemoglobin 29.1 pg (27-33); Mean Corpuscular Hgb Conc 33.2 g/dL (31-36); Mean Corpuscular Volume 87.7 fL (80-97); Mean Platelet Volume 8.2 fL (7.5-11.2); Platelet Count 265 10^3/uL (150-450); Red Blood Count 3.75 10^6/uL (3.63-4.92); Red Cell Distribution Width 14.5 % (12-17); White Blood Count 9.5 10^3/uL (3.8-11.8)
[2023-06-27 20:48] LABS: Albumin 3.8 g/dL (3.2-5.2); Albumin/Globulin Ratio 1.1 (1-3); Calcium 9.1 mg/dL (8.6-10.3); Creatinine, Serum 2.43 mg/dL (0.51-0.95); Globulin 3.4 g/dL (2-4); Potassium 4.4 mmol/L (3.5-5.0); Total Bilirubin 0.3 mg/dL (0.2-1.0); Total Protein 7.2 g/dL (6.4-8.9); eGFR CKD-EPI 20.4 (>60)
[2023-06-27 20:52] LABS: INR 0.96 (0.83-1.13)
[2023-06-27] MEDS ORDERED: Ondansetron 4 mg VIAL 2 MG/ML 2 ml VIAL IV PRN (21:47)
[2023-06-27] MEDS ORDERED: Dextrose 50% Syringe 50 ml 25 GM/50 ML SYRINGE IV PUSH PRN (22:10)
[2023-06-27] MEDS: Pantoprazole 80 mg in NS BAG 80 MG/250 ML BAG IV SCH (23:55)
[2023-06-28] MEDS ORDERED: Albuterol/Ipratropium NEB.SOL (2.5/0.5 MG) 3 ML NEB.SOLN INH PRN
[2023-06-28 02:39] LABS: ABS Basophils 0.1 10^3/uL (0.0-0.1); ABS Lymphocytes 0.8 10^3/uL (1.0-4.8); ABS Monocytes 0.4 10^3/uL (0.0-0.9); ABS Neutrophils 8.2 10^3/uL (1.5-7.6); Eosinophil % 0.1 %; Hematocrit 30.8 % (35-45); Hemoglobin 10.7 g/dL (11.5-14.3); Lymphocyte % 8.3 %; Mean Corpuscular Hgb Conc 34.6 g/dL (31-36); Mean Corpuscular Volume 86.6 fL (80-97); Platelet Count 261 10^3/uL (150-450); Red Blood Count 3.56 10^6/uL (3.63-4.92); Red Cell Distribution Width 14.7 % (12-17); White Blood Count 9.5 10^3/uL (3.8-11.8)
[2023-06-28] MEDS: FLUTICAS/UMECLI/VILANT 100-62.5-25 MDI (NF) INH SCH (08:52)
[2023-06-28] MEDS: Senna TAB 8.6 mg TAB PO SCH (09:08)
[2023-06-28 09:09] LABS: ABS Basophils 0.1 10^3/uL (0.0-0.1); ABS Eosinophils 0.1 10^3/uL (0.0-0.5); ABS Lymphocytes 1.1 10^3/uL (1.0-4.8); ABS Monocytes 0.5 10^3/uL (0.0-0.9); ABS Neutrophils 6.7 10^3/uL (1.5-7.6); ABS Nucleated RBC 0.01 10^3/ul; Eosinophil % 0.7 %; Hematocrit 30.1 % (35-45); Hemoglobin 10.5 g/dL (11.5-14.3); Lymphocyte % 12.9 %; Mean Corpuscular Hemoglobin 30.2 pg (27-33); Mean Corpuscular Volume 86.3 fL (80-97); Mean Platelet Volume 8.1 fL (7.5-11.2); Nucleated Red Blood Cells % 0.1 %/100WBC (0.0-0.8); Platelet Count 277 10^3/uL (150-450); Red Blood Count 3.49 10^6/uL (3.63-4.92); Red Cell Distribution Width 14.5 % (12-17); White Blood Count 8.3 10^3/uL (3.8-11.8)
[2023-06-28 09:17] LABS: ALT 16 U/L (7-52); Albumin 3.4 g/dL (3.2-5.2); Albumin/Globulin Ratio 1.2 (1-3); Alkaline Phosphatase 93 U/L (35-149); Anion Gap 11 mmol/L (2-16); Blood Urea Nitrogen 44 mg/dL (6-24); CO2 Carbon Dioxide 26 mmol/L (22-32); Calcium 8.7 mg/dL (8.6-10.3); Chloride 96 mmol/L (101-111); Creatinine, Serum 2.72 mg/dL (0.51-0.95); Globulin 2.8 g/dL (2-4); Glucose 214 mg/dL (70-100); Sodium 133 mmol/L (135-145); Total Bilirubin 0.3 mg/dL (0.2-1.0); Total Protein 6.2 g/dL (6.4-8.9); eGFR CKD-EPI 17.8 (>60)
[2023-06-28] MEDS: Pantoprazole 80 mg in NS BAG 80 MG/250 ML BAG IV SCH (10:07)
[2023-06-28 12:09] LABS: ABS Basophils 0.1 10^3/uL (0.0-0.1); ABS Eosinophils 0.1 10^3/uL (0.0-0.5); ABS Lymphocytes 1.4 10^3/uL (1.0-4.8); ABS Monocytes 0.5 10^3/uL (0.0-0.9); ABS Neutrophils 6.6 10^3/uL (1.5-7.6); Eosinophil % 1.2 %; Hematocrit 33.3 % (35-45); Hemoglobin 11.2 g/dL (11.5-14.3); Lymphocyte % 15.7 %; Mean Corpuscular Hemoglobin 29.2 pg (27-33); Mean Corpuscular Hgb Conc 33.7 g/dL (31-36); Mean Corpuscular Volume 86.7 fL (80-97); Mean Platelet Volume 7.9 fL (7.5-11.2); Platelet Count 285 10^3/uL (150-450); Red Blood Count 3.84 10^6/uL (3.63-4.92); Red Cell Distribution Width 14.7 % (12-17); White Blood Count 8.7 10^3/uL (3.8-11.8)
[2023-06-28 12:26] LABS: Potassium Redraw 3.9 mmol/L (3.5-5.0)
[2023-06-28] MEDS: Pantoprazole VIAL 40 MG VIAL IV SCH (15:25)
[2023-06-29] MEDS: Pantoprazole VIAL 40 MG VIAL IV SCH (03:00)
[2023-06-29 06:02] LABS: ABS Basophils 0.1 10^3/uL (0.0-0.1); ABS Eosinophils 0.2 10^3/uL (0.0-0.5); ABS Lymphocytes 1.5 10^3/uL (1.0-4.8); ABS Monocytes 0.5 10^3/uL (0.0-0.9); ABS Neutrophils 4.2 10^3/uL (1.5-7.6); ABS Nucleated RBC 0.01 10^3/ul; Eosinophil % 3.2 %; Hematocrit 30.2 % (35-45); Hemoglobin 10.6 g/dL (11.5-14.3); Lymphocyte % 22.9 %; Mean Corpuscular Hemoglobin 30.3 pg (27-33); Mean Corpuscular Hgb Conc 35.2 g/dL (31-36); Mean Platelet Volume 7.8 fL (7.5-11.2); Nucleated Red Blood Cells % 0.1 %/100WBC (0.0-0.8); Platelet Count 284 10^3/uL (150-450); Red Blood Count 3.52 10^6/uL (3.63-4.92); Red Cell Distribution Width 14.6 % (12-17); White Blood Count 6.5 10^3/uL (3.8-11.8)
[2023-06-29 06:22] LABS: Calcium 8.6 mg/dL (8.6-10.3); Creatinine, Serum 3.1 mg/dL (0.51-0.95); Magnesium 1.6 mg/dL (1.9-2.7); Potassium 3.9 mmol/L (3.5-5.0); eGFR CKD-EPI 15.2 (>60)
[2023-06-29] MEDS ORDERED: Magnesium Sulfate IV 1GM/100ML 1 GM/100 ML BAG IV ONE (07:06)
[2023-06-29] MEDS: Senna TAB 8.6 mg TAB PO SCH (07:43)
[2023-06-29] MEDS: FLUTICAS/UMECLI/VILANT 100-62.5-25 MDI (NF) INH SCH (08:27)
[2023-06-29] MEDS ORDERED: Aspirin EC 81 mg TAB.EC (enteric coated) PO SCH (09:00)
[2023-06-29 10:29] VITALS: BP 135/76
== END 2023-06-29 13:53 | disposition home or self-care (01) ==
LOC: ED 18:43 → EDHOLD 18:43 → SUATTDRO 21:47 → SSU 06-28 00:17
PROVIDERS: ADMIT Internal Medicine; ATTEND Internal Medicine

== ENCOUNTER 2023-09-24 18:18 | Inpatient (IN) ==
[2023-09-24 21:49] LABS: ABS Eosinophils 0.1 10^3/uL (0.0-0.5); ABS Lymphocytes 0.5 10^3/uL (1.0-4.8); ABS Monocytes 0.3 10^3/uL (0.0-0.9); ABS Neutrophils 5.4 10^3/uL (1.5-7.6); Eosinophil % 1.6 %; Hematocrit 35.1 % (35-45); Hemoglobin 11.8 g/dL (11.5-14.3); Lymphocyte % 7.3 %; Mean Corpuscular Hemoglobin 30.1 pg (27-33); Mean Corpuscular Hgb Conc 33.7 g/dL (31-36); Mean Corpuscular Volume 89.4 fL (80-97); Platelet Count 213 10^3/uL (150-450); Red Blood Count 3.93 10^6/uL (3.63-4.92); Red Cell Distribution Width 13.3 % (12-17); White Blood Count 6.3 10^3/uL (3.8-11.8)
[2023-09-24 21:58] LABS: Activated Partial Thrombo Time 30.4 seconds (26.0-38.0); INR 1.05 (0.83-1.13)
[2023-09-24 22:21] LABS: Albumin 3.7 g/dL (3.2-5.2); Albumin/Globulin Ratio 1.3 (1-3); C Reactive Protein 3.77 mg/L (<8.01); Calcium 9.6 mg/dL (8.6-10.3); Creatinine, Serum 1.88 mg/dL (0.51-0.95); Globulin 2.8 g/dL (2-4); Potassium 4.3 mmol/L (3.5-5.0); Total Bilirubin 0.4 mg/dL (0.2-1.0); Total Protein 6.5 g/dL (6.4-8.9); eGFR CKD-EPI 27.7 (>60)
[2023-09-24] MEDS: Furosemide 40 mg/4 ml IV VIAL IV SLOW PU ONE (22:56)
[2023-09-24 23:40] LABS: High Sensitivity Troponin 1 Hr 42 pg/mL (<15)
[2023-09-25 01:34] LABS: Urine Appearance Clear; Urine Bilirubin Negative (Negative); Urine Blood Negative (Negative); Urine Color Colorless; Urine Glucose Negative (Negative); Urine Ketones Negative (Negative); Urine Nitrite Negative (Negative); Urine Protein 1+ (>=30 mg/dL) (Negative); Urine Specific Gravity 1.008 (1.002-1.030); Urine Urobilinogen Negative (Negative); Urine pH 5.5 (5.0-8.0)
[2023-09-25 01:38] LABS: Urine Bacteria Absent /HPF (Absent); Urine Red Blood Cell Absent /HPF (0-Trace); Urine Squamous Epithelial Cell Present /HPF (Absent); Urine White Blood Cell Absent /HPF (0-Trace)
[2023-09-25 03:41] LABS: Magnesium 1.8 mg/dL (1.9-2.7)
[2023-09-25 03:56] LABS: TSH Ultra Thyroid Stim Horm 3.08 mcIU/mL (0.34-5.60)
[2023-09-25] MEDS ORDERED: Albuterol HFA INHALER 8 gm MDI INH PRN (04:59)
[2023-09-25] MEDS ORDERED: Albuterol/Ipratropium NEB.SOL (2.5/0.5 MG) 3 ML NEB.SOLN INH PRN (04:59)
[2023-09-25 06:20] LABS: ABS Eosinophils 0.1 10^3/uL (0.0-0.5); ABS Lymphocytes 0.5 10^3/uL (1.0-4.8); ABS Monocytes 0.3 10^3/uL (0.0-0.9); ABS Neutrophils 3.1 10^3/uL (1.5-7.6); ABS Nucleated RBC 0.01 10^3/ul; Eosinophil % 2.9 %; Hematocrit 31.4 % (35-45); Hemoglobin 10.8 g/dL (11.5-14.3); Lymphocyte % 12.3 %; Mean Corpuscular Hemoglobin 30.5 pg (27-33); Mean Corpuscular Hgb Conc 34.4 g/dL (31-36); Mean Corpuscular Volume 88.8 fL (80-97); Mean Platelet Volume 7.9 fL (7.5-11.2); Nucleated Red Blood Cells % 0.1 %/100WBC (0.0-0.8); Platelet Count 192 10^3/uL (150-450); Red Blood Count 3.54 10^6/uL (3.63-4.92); Red Cell Distribution Width 13.1 % (12-17); White Blood Count 4.1 10^3/uL (3.8-11.8)
[2023-09-25 06:53] LABS: Calcium 9.1 mg/dL (8.6-10.3); Creatinine, Serum 1.97 mg/dL (0.51-0.95); Potassium 4.6 mmol/L (3.5-5.0); eGFR CKD-EPI 26.2 (>60)
[2023-09-25] MEDS: Aspirin EC 81 mg TAB.EC (enteric coated) PO SCH (10:29)
[2023-09-25] MEDS: Furosemide 40 mg/4 ml IV VIAL IV ONE (12:35)
[2023-09-26 07:05] LABS: ABS Eosinophils 0.1 10^3/uL (0.0-0.5); ABS Lymphocytes 0.6 10^3/uL (1.0-4.8); ABS Monocytes 0.4 10^3/uL (0.0-0.9); ABS Neutrophils 2.7 10^3/uL (1.5-7.6); ABS Nucleated RBC 0.01 10^3/ul; Eosinophil % 3.6 %; Hematocrit 33.8 % (35-45); Hemoglobin 11.5 g/dL (11.5-14.3); Lymphocyte % 15.7 %; Mean Corpuscular Hemoglobin 30.2 pg (27-33); Mean Corpuscular Volume 88.9 fL (80-97); Mean Platelet Volume 7.8 fL (7.5-11.2); Nucleated Red Blood Cells % 0.2 %/100WBC (0.0-0.8); Platelet Count 191 10^3/uL (150-450); Red Blood Count 3.81 10^6/uL (3.63-4.92); Red Cell Distribution Width 13.1 % (12-17); White Blood Count 3.8 10^3/uL (3.8-11.8)
[2023-09-26 07:33] LABS: Albumin 3.4 g/dL (3.2-5.2); Albumin/Globulin Ratio 1.4 (1-3); Calcium 8.8 mg/dL (8.6-10.3); Creatinine, Serum 2.16 mg/dL (0.51-0.95); Globulin 2.5 g/dL (2-4); Magnesium 1.7 mg/dL (1.9-2.7); Potassium 4.2 mmol/L (3.5-5.0); Total Bilirubin 0.4 mg/dL (0.2-1.0); Total Protein 5.9 g/dL (6.4-8.9); eGFR CKD-EPI 23.5 (>60)
[2023-09-26] MEDS: Ondansetron 4 mg VIAL 2 MG/ML 2 ml VIAL IV PRN (11:08)
[2023-09-26] MEDS: hydrALAZINE 20 mg/ml 1 ML Vial IV IV SLOW PU PRN (11:24)
[2023-09-27] MEDS: hydrALAZINE 20 mg/ml 1 ML Vial IV IV SLOW PU ONE (03:25)
[2023-09-27 05:24] LABS: Albumin 3.6 g/dL (3.2-5.2); Albumin/Globulin Ratio 1.2 (1-3); Calcium 9.1 mg/dL (8.6-10.3); Creatinine, Serum 2.36 mg/dL (0.51-0.95); Globulin 2.9 g/dL (2-4); Magnesium 1.7 mg/dL (1.9-2.7); Potassium 4.3 mmol/L (3.5-5.0); Total Bilirubin 0.4 mg/dL (0.2-1.0); Total Protein 6.5 g/dL (6.4-8.9); eGFR CKD-EPI 21.1 (>60)
[2023-09-27] MEDS: Magnesium Sulfate 2 gm BAG 2 GM/50 ML BAG IVPB ONE (06:11)
[2023-09-27] MEDS: Magnesium Sulfate IV 1GM/100ML 1 GM/100 ML BAG IV ONE (09:22)
[2023-09-27] MEDS ORDERED: Dextrose 50% Syringe 50 ml 25 GM/50 ML SYRINGE IV PUSH PRN (10:47)
[2023-09-27] MEDS ORDERED: Senna TAB 8.6 mg TAB PO PRN (10:48)
[2023-09-27] MEDS ORDERED: Polyethylene Glycol 3350 17 GM PACKET PO PRN (10:49)
[2023-09-27] MEDS: Furosemide 40 mg/4 ml IV VIAL IV ONE (11:15)
[2023-09-28 05:38] LABS: ABS Eosinophils 0.1 10^3/uL (0.0-0.5); ABS Lymphocytes 0.8 10^3/uL (1.0-4.8); ABS Monocytes 0.3 10^3/uL (0.0-0.9); ABS Neutrophils 3.8 10^3/uL (1.5-7.6); ABS Nucleated RBC 0.01 10^3/ul; Eosinophil % 2.9 %; Hematocrit 34.9 % (35-45); Hemoglobin 11.9 g/dL (11.5-14.3); Lymphocyte % 15.2 %; Mean Corpuscular Hemoglobin 30.1 pg (27-33); Mean Corpuscular Hgb Conc 34.1 g/dL (31-36); Mean Corpuscular Volume 88.2 fL (80-97); Mean Platelet Volume 8.2 fL (7.5-11.2); Nucleated Red Blood Cells % 0.2 %/100WBC (0.0-0.8); Platelet Count 215 10^3/uL (150-450); Red Blood Count 3.96 10^6/uL (3.63-4.92); Red Cell Distribution Width 13.4 % (12-17)
[2023-09-28 07:24] LABS: Calcium 8.9 mg/dL (8.6-10.3); Creatinine, Serum 2.52 mg/dL (0.51-0.95); Magnesium 2.6 mg/dL (1.9-2.7); Potassium 4.4 mmol/L (3.5-5.0); eGFR CKD-EPI 19.5 (>60)
[2023-09-28] MEDS ORDERED: Clindamycin 900 MG/D5W BAG 900 MG/50 ML BAG IVPB ONE (10:30)
[2023-09-29] MEDS: Benzocaine/Menthol LOZ MT PRN ×2 (05:48→13:22)
[2023-09-29 05:56] LABS: ABS Eosinophils 0.3 10^3/uL (0.0-0.5); ABS Monocytes 0.3 10^3/uL (0.0-0.9); ABS Neutrophils 3.2 10^3/uL (1.5-7.6); ABS Nucleated RBC 0.01 10^3/ul; Eosinophil % 5.9 %; Hematocrit 33.3 % (35-45); Hemoglobin 11.4 g/dL (11.5-14.3); Lymphocyte % 20.2 %; Mean Corpuscular Hemoglobin 30.4 pg (27-33); Mean Corpuscular Hgb Conc 34.2 g/dL (31-36); Mean Corpuscular Volume 88.9 fL (80-97); Mean Platelet Volume 7.8 fL (7.5-11.2); Nucleated Red Blood Cells % 0.2 %/100WBC (0.0-0.8); Platelet Count 221 10^3/uL (150-450); Red Blood Count 3.74 10^6/uL (3.63-4.92); Red Cell Distribution Width 13.1 % (12-17); White Blood Count 4.8 10^3/uL (3.8-11.8)
[2023-09-29 06:59] LABS: Anion Gap 8 mmol/L (2-16); Blood Urea Nitrogen 47 mg/dL (6-24); CO2 Carbon Dioxide 27 mmol/L (22-32); Calcium 8.5 mg/dL (8.6-10.3); Chloride 102 mmol/L (101-111); Creatinine, Serum 2.65 mg/dL (0.51-0.95); Glucose 132 mg/dL (70-100); Magnesium 2.3 mg/dL (1.9-2.7); Sodium 137 mmol/L (135-145); eGFR CKD-EPI 18.4 (>60)
[2023-09-29] MEDS: NS 0.9% 1000 ml BAG 1,000 ML IV SCH (08:16)
[2023-09-29] MEDS: Bumetanide IV 0.25 MG/ML 4 ml VIAL (1 mg) IV SLOW PU SCH ×2 (11:00→20:28)
[2023-09-29] MEDS ORDERED: Midazolam 2 mg/2 ml VIAL 1 mg/ml 2 ml VIAL (2 mg) ONE (15:04)
[2023-09-29] MEDS ORDERED: fentaNYL 100 mcg/2 ml 50 MCG/ML VIAL ONE (15:04)
[2023-09-29] MEDS: Clindamycin 900 MG/D5W BAG 900 MG/50 ML BAG IVPB ONE (15:49)
[2023-09-29] MEDS ORDERED: Lidocaine 1% VIAL 10 MG/ML 30 ML VIAL ONE (16:01)
[2023-09-29] MEDS ORDERED: Propofol 10 MG/ML 20 ML BTL ONE ×2 (18:43→18:45)
[2023-09-29] MEDS ORDERED: Propofol 10 MG/ML 50 ML BTL ONE ×2 (18:43→18:45)
[2023-09-30 04:57] LABS: ABS Eosinophils 0.2 10^3/uL (0.0-0.5); ABS Lymphocytes 0.6 10^3/uL (1.0-4.8); ABS Monocytes 0.3 10^3/uL (0.0-0.9); ABS Neutrophils 4.4 10^3/uL (1.5-7.6); Eosinophil % 3.7 %; Hematocrit 36.3 % (35-45); Hemoglobin 12.5 g/dL (11.5-14.3); Lymphocyte % 10.6 %; Mean Corpuscular Hemoglobin 30.4 pg (27-33); Mean Corpuscular Hgb Conc 34.4 g/dL (31-36); Mean Corpuscular Volume 88.4 fL (80-97); Mean Platelet Volume 8.1 fL (7.5-11.2); Nucleated Red Blood Cells % 0.1 %/100WBC (0.0-0.8); Platelet Count 221 10^3/uL (150-450); Red Blood Count 4.11 10^6/uL (3.63-4.92); Red Cell Distribution Width 13.2 % (12-17); White Blood Count 5.5 10^3/uL (3.8-11.8)
[2023-09-30 05:26] LABS: Calcium 8.9 mg/dL (8.6-10.3); Creatinine, Serum 2.68 mg/dL (0.51-0.95); Magnesium 2.1 mg/dL (1.9-2.7); Potassium 4.6 mmol/L (3.5-5.0); eGFR CKD-EPI 18.1 (>60)
[2023-09-30] MEDS: hydrALAZINE 20 mg/ml 1 ML Vial IV IV SLOW PU ONE (12:43)
[2023-10-01 06:18] LABS: ABS Eosinophils 0.1 10^3/uL (0.0-0.5); ABS Lymphocytes 0.9 10^3/uL (1.0-4.8); ABS Monocytes 0.3 10^3/uL (0.0-0.9); ABS Neutrophils 3.6 10^3/uL (1.5-7.6); Eosinophil % 2.8 %; Hemoglobin 10.8 g/dL (11.5-14.3); Lymphocyte % 17.4 %; Mean Corpuscular Hgb Conc 33.6 g/dL (31-36); Mean Corpuscular Volume 89.1 fL (80-97); Mean Platelet Volume 8.1 fL (7.5-11.2); Platelet Count 183 10^3/uL (150-450); Red Blood Count 3.59 10^6/uL (3.63-4.92); Red Cell Distribution Width 13.3 % (12-17)
[2023-10-01 06:34] LABS: Calcium 8.9 mg/dL (8.6-10.3); Creatinine, Serum 2.91 mg/dL (0.51-0.95); Potassium 4.5 mmol/L (3.5-5.0); eGFR CKD-EPI 16.4 (>60)
[2023-10-02 06:23] LABS: Calcium 8.7 mg/dL (8.6-10.3); Creatinine, Serum 3.19 mg/dL (0.51-0.95); Potassium 4.5 mmol/L (3.5-5.0); eGFR CKD-EPI 14.7 (>60)
[2023-10-02] MEDS: CMCS:FLUTICAS/UMECLI/VILANT 100-62.5-25 MDI (NF) INH SCH (08:17)
[2023-10-02 11:57] VITALS: BP 139/63
== END 2023-10-02 12:32 | disposition home or self-care (01) | DRG 242 ==
LOC: ED 18:18 → EDHOLD 18:18 → SUATTDRO 09-25 03:12 → MED 09-25 16:10 → ICU 09-25 16:36 → SUATTDRO 09-27 10:28 → MEDTELE 09-30 15:45
PROVIDERS: ADMIT Internal Medicine; ATTEND Internal Medicine

== ENCOUNTER 2024-02-13 18:03 | Inpatient (IN) ==
[2024-02-13 19:02] LABS: ABS Basophils 0.1 10^3/uL (0.0-0.1); ABS Eosinophils 0.2 10^3/uL (0.0-0.5); ABS Lymphocytes 0.6 10^3/uL (1.0-4.8); ABS Monocytes 0.3 10^3/uL (0.0-0.9); ABS Neutrophils 3.8 10^3/uL (1.5-7.6); ABS Nucleated RBC 0.01 10^3/ul; Eosinophil % 4.6 %; Hematocrit 31.3 % (35-45); Hemoglobin 10.4 g/dL (11.5-14.3); Lymphocyte % 12.4 %; Mean Corpuscular Hemoglobin 29.5 pg (27-33); Mean Corpuscular Hgb Conc 33.1 g/dL (31-36); Mean Corpuscular Volume 89.3 fL (80-97); Mean Platelet Volume 8.6 fL (7.5-11.2); Nucleated Red Blood Cells % 0.1 %/100WBC (0.0-0.8); Platelet Count 204 10^3/uL (150-450); Red Blood Count 3.51 10^6/uL (3.63-4.92); Red Cell Distribution Width 14.4 % (12-17); White Blood Count 5.1 10^3/uL (3.8-11.8)
[2024-02-13 19:42] LABS: Albumin 3.3 g/dL (3.2-5.2); Albumin/Globulin Ratio 1.1 (1-3); Calcium 8.9 mg/dL (8.6-10.3); Creatinine, Serum 1.94 mg/dL (0.51-0.95); Potassium 4.5 mmol/L (3.5-5.0); Total Bilirubin 0.3 mg/dL (0.2-1.0); Total Protein 6.3 g/dL (6.4-8.9); eGFR CKD-EPI 26.5 (>60)
[2024-02-13 20:37] LABS: High Sensitivity Troponin 1 Hr 44 pg/mL (<15)
[2024-02-13] MEDS: Furosemide 40 mg/4 ml IV VIAL IV SLOW PU ONE ×2 (20:57→21:11)
[2024-02-13 21:19] LABS: Urine Appearance Turbid; Urine Bacteria Absent /HPF (Absent); Urine Bilirubin Negative (Negative); Urine Blood 3+ (Negative); Urine Color Light-Yellow; Urine Glucose 4+ (>=1000 mg/dL) (Negative); Urine Ketones Negative (Negative); Urine Nitrite Negative (Negative); Urine Protein 3+ (>=300 mg/dL) (Negative); Urine Red Blood Cell 3+(>10/hpf) /HPF (0-Trace); Urine Squamous Epithelial Cell Present /HPF (Absent); Urine Urobilinogen Negative (Negative); Urine White Blood Cell 2+(11-20/hpf) /HPF (0-Trace)
[2024-02-14] MEDS ORDERED: Dextrose 50% Syringe 50 ml 25 GM/50 ML SYRINGE IV PUSH PRN (00:14)
[2024-02-14] MEDS: Furosemide 40 mg/4 ml IV VIAL IV SLOW PU SCH (00:20)
[2024-02-14] MEDS ORDERED: Albuterol HFA INHALER 8 gm MDI INH PRN (01:12)
[2024-02-14] MEDS ORDERED: Albuterol/Ipratropium NEB.SOL (2.5/0.5 MG) 3 ML NEB.SOLN INH PRN (01:12)
[2024-02-14] MEDS ORDERED: Sulfur Hexaflouride MICROSPHR 25 MG VIAL IV PRN (03:00)
[2024-02-14] MEDS: hydrALAZINE 20 mg/ml 1 ML Vial IV IV SLOW PU ONE (04:20)
[2024-02-14 04:49] LABS: ABS Basophils 0.1 10^3/uL (0.0-0.1); ABS Eosinophils 0.2 10^3/uL (0.0-0.5); ABS Lymphocytes 0.6 10^3/uL (1.0-4.8); ABS Monocytes 0.3 10^3/uL (0.0-0.9); ABS Neutrophils 3.7 10^3/uL (1.5-7.6); Eosinophil % 4.7 %; Hematocrit 31.6 % (35-45); Hemoglobin 10.7 g/dL (11.5-14.3); Lymphocyte % 13.1 %; Mean Corpuscular Hemoglobin 30.1 pg (27-33); Mean Corpuscular Volume 88.6 fL (80-97); Mean Platelet Volume 8.5 fL (7.5-11.2); Platelet Count 214 10^3/uL (150-450); Red Blood Count 3.56 10^6/uL (3.63-4.92); Red Cell Distribution Width 14.4 % (12-17); White Blood Count 4.9 10^3/uL (3.8-11.8)
[2024-02-14 04:53] LABS: Activated Partial Thrombo Time 32.5 seconds (26.0-38.0); INR 1.02 (0.85-1.14)
[2024-02-14 05:02] LABS: High Sensitivity Troponin 3 Hr 46 pg/mL (<15)
[2024-02-14 05:20] LABS: Calcium 9.3 mg/dL (8.6-10.3); Creatinine, Serum 1.91 mg/dL (0.51-0.95); Magnesium 1.7 mg/dL (1.9-2.7); Potassium 4.3 mmol/L (3.5-5.0)
[2024-02-14] MEDS: Aspirin EC 81 mg TAB.EC (enteric coated) PO SCH (08:21)
[2024-02-14] MEDS: Heparin 5000 UNITS/ML 1 mL VIAL SUBCUT SCH (08:34)
[2024-02-14] MEDS: CMCS:FLUTICAS/UMECLI/VILANT 100-62.5-25 MDI (NF) INH SCH (14:09)
[2024-02-15 06:09] LABS: Albumin 2.7 g/dL (3.2-5.2); Albumin/Globulin Ratio 1.1 (1-3); Calcium 8.6 mg/dL (8.6-10.3); Creatinine, Serum 2.18 mg/dL (0.51-0.95); Globulin 2.5 g/dL (2-4); Potassium 4.2 mmol/L (3.5-5.0); Total Bilirubin 0.4 mg/dL (0.2-1.0); Total Protein 5.2 g/dL (6.4-8.9); eGFR CKD-EPI 23.1 (>60)
[2024-02-15 07:44] LABS: ABS Basophils 0.1 10^3/uL (0.0-0.1); ABS Eosinophils 0.2 10^3/uL (0.0-0.5); ABS Lymphocytes 0.7 10^3/uL (1.0-4.8); ABS Monocytes 0.3 10^3/uL (0.0-0.9); ABS Neutrophils 3.5 10^3/uL (1.5-7.6); Eosinophil % 4.9 %; Hematocrit 27.4 % (35-45); Hemoglobin 9.4 g/dL (11.5-14.3); Lymphocyte % 15.2 %; Mean Corpuscular Hemoglobin 30.7 pg (27-33); Mean Corpuscular Hgb Conc 34.4 g/dL (31-36); Mean Corpuscular Volume 89.3 fL (80-97); Mean Platelet Volume 8.9 fL (7.5-11.2); Nucleated Red Blood Cells % 0.1 %/100WBC (0.0-0.8); Platelet Count 203 10^3/uL (150-450); Red Blood Count 3.07 10^6/uL (3.63-4.92); Red Cell Distribution Width 14.3 % (12-17); White Blood Count 4.8 10^3/uL (3.8-11.8)
[2024-02-16 05:51] LABS: ABS Eosinophils 0.3 10^3/uL (0.0-0.5); ABS Lymphocytes 0.8 10^3/uL (1.0-4.8); ABS Monocytes 0.4 10^3/uL (0.0-0.9); ABS Neutrophils 3.6 10^3/uL (1.5-7.6); Eosinophil % 5.7 %; Hematocrit 31.3 % (35-45); Hemoglobin 10.6 g/dL (11.5-14.3); Lymphocyte % 15.1 %; Mean Corpuscular Hemoglobin 30.4 pg (27-33); Mean Corpuscular Hgb Conc 33.9 g/dL (31-36); Mean Corpuscular Volume 89.4 fL (80-97); Mean Platelet Volume 8.7 fL (7.5-11.2); Platelet Count 204 10^3/uL (150-450); Red Cell Distribution Width 14.3 % (12-17); White Blood Count 5.1 10^3/uL (3.8-11.8)
[2024-02-16 06:07] LABS: Albumin/Globulin Ratio 1.2 (1-3); Calcium 8.9 mg/dL (8.6-10.3); Creatinine, Serum 2.32 mg/dL (0.51-0.95); Globulin 2.5 g/dL (2-4); Potassium 4.7 mmol/L (3.5-5.0); Total Bilirubin 0.3 mg/dL (0.2-1.0); Total Protein 5.5 g/dL (6.4-8.9); eGFR CKD-EPI 21.4 (>60)
[2024-02-16] MEDS: Furosemide 40 mg/4 ml IV VIAL IV SLOW PU SCH (08:00)
[2024-02-16 10:29] LABS: HDL Cholesterol 53.3 mg/dL
[2024-02-16] MEDS: Furosemide 40 mg/4 ml IV VIAL IV ONE (10:34)
[2024-02-16 13:48] VITALS: BP 115/66
== END 2024-02-16 15:50 | disposition home or self-care (01) | DRG 291 ==
LOC: ED 18:03 → EDHOLD 22:51 → SUATTDRO 22:51 → MED 02-14 14:55
PROVIDERS: ADMIT Hospitalist; ATTEND Student in an Organized Health Care Education/Training Program

== ENCOUNTER 2024-06-03 15:35 | Observation (INO) ==
[2024-06-03 16:40] LABS: ABS Eosinophils 0.1 10^3/uL (0.0-0.5); ABS Lymphocytes 0.3 10^3/uL (1.0-4.8); ABS Monocytes 0.2 10^3/uL (0.0-0.9); ABS Neutrophils 7.7 10^3/uL (1.5-7.6); ABS Nucleated RBC 0.02 10^3/ul; Eosinophil % 1.5 %; Hematocrit 43.7 % (35-45); Hemoglobin 14.4 g/dL (11.5-14.3); Lymphocyte % 3.1 %; Mean Corpuscular Hemoglobin 29.6 pg (27-33); Mean Corpuscular Hgb Conc 32.9 g/dL (31-36); Mean Corpuscular Volume 89.9 fL (80-97); Mean Platelet Volume 8.8 fL (7.5-11.2); Nucleated Red Blood Cells % 0.3 %/100WBC (0.0-0.8); Platelet Count 232 10^3/uL (150-450); Red Blood Count 4.86 10^6/uL (3.63-4.92); Red Cell Distribution Width 15.7 % (12-17); White Blood Count 8.3 10^3/uL (3.8-11.8)
[2024-06-03] MEDS: Ondansetron 4 mg VIAL 2 MG/ML 2 ml VIAL IV ONE (16:52)
[2024-06-03 17:16] LABS: Albumin 4.1 g/dL (3.5-5.7); Albumin/Globulin Ratio 1.2 (1-3); C Reactive Protein 3.33 mg/L (<8.01); Calcium 10.5 mg/dL (8.6-10.3); Creatinine, Serum 2.51 mg/dL (0.51-0.95); Globulin 3.3 g/dL (2-4); Magnesium 1.7 mg/dL (1.9-2.7); Potassium 4.4 mmol/L (3.5-5.0); Total Bilirubin 0.7 mg/dL (0.2-1.0); Total Protein 7.4 g/dL (6.4-8.9); eGFR CKD-EPI 19.5 (>60)
[2024-06-03 18:15] LABS: High Sensitivity Troponin 1 Hr 34 pg/mL (<15)
[2024-06-03] MEDS: Labetalol IV 5 MG/ML 20 ml VIAL IV PUSH ONE (18:26)
[2024-06-03 20:19] LABS: High Sensitivity Troponin 3 Hr 33 pg/mL (<15)
[2024-06-03 23:33] LABS: Urine Appearance Clear; Urine Bilirubin Negative (Negative); Urine Blood 1+ (Negative); Urine Color Light-Yellow; Urine Glucose 2+ (>=150 mg/dL) (Negative); Urine Ketones Negative (Negative); Urine Nitrite Negative (Negative); Urine Protein 3+ (>=300 mg/dL) (Negative); Urine Specific Gravity 1.016 (1.002-1.030); Urine Urobilinogen Negative (Negative)
[2024-06-03 23:44] LABS: Urine Bacteria Absent /HPF (Absent); Urine Red Blood Cell 1+(3-5/hpf) /HPF (0-Trace); Urine Squamous Epithelial Cell Present /HPF (Absent); Urine White Blood Cell Absent /HPF (0-Trace)
[2024-06-04] MEDS: Magnesium Sulfate 2 gm BAG 2 GM/50 ML BAG IVPB ONE (02:44)
[2024-06-04] MEDS ORDERED: Bumetanide IV 0.25 MG/ML 4 ml VIAL (1 mg) IV SLOW PU ONE (03:04)
[2024-06-04] MEDS ORDERED: Albuterol HFA INHALER 8 gm MDI INH PRN (03:05)
[2024-06-04] MEDS ORDERED: Albuterol/Ipratropium NEB.SOL (2.5/0.5 MG) 3 ML NEB.SOLN INH PRN (03:05)
[2024-06-04] MEDS ORDERED: Sulfur Hexaflouride MICROSPHR 25 MG VIAL IV PRN (03:09)
[2024-06-04] MEDS ORDERED: Dextrose 50% Syringe 50 ml 25 GM/50 ML SYRINGE IV PUSH PRN (03:11)
[2024-06-04] MEDS: Furosemide 40 mg/4 ml IV VIAL IV ONE (03:15)
[2024-06-04] MEDS: Ondansetron 4 mg VIAL 2 MG/ML 2 ml VIAL IV PRN (05:07)
[2024-06-04] MEDS: Bumetanide IV 0.25 MG/ML 10 ml VIAL (2.5 mg) IV SLOW PU ONE (05:28)
[2024-06-04] MEDS: Aspirin EC 81 mg TAB.EC (enteric coated) PO SCH (07:59)
[2024-06-04 08:08] LABS: ABS Eosinophils 0.1 10^3/uL (0.0-0.5); ABS Lymphocytes 0.3 10^3/uL (1.0-4.8); ABS Monocytes 0.2 10^3/uL (0.0-0.9); ABS Neutrophils 4.5 10^3/uL (1.5-7.6); Eosinophil % 1.8 %; Hematocrit 36.9 % (35-45); Hemoglobin 12.4 g/dL (11.5-14.3); Lymphocyte % 6.1 %; Mean Corpuscular Hemoglobin 30.1 pg (27-33); Mean Corpuscular Hgb Conc 33.7 g/dL (31-36); Mean Corpuscular Volume 89.3 fL (80-97); Mean Platelet Volume 8.6 fL (7.5-11.2); Nucleated Red Blood Cells % 0.1 %/100WBC (0.0-0.8); Platelet Count 186 10^3/uL (150-450); Red Blood Count 4.13 10^6/uL (3.63-4.92); Red Cell Distribution Width 15.3 % (12-17); White Blood Count 5.1 10^3/uL (3.8-11.8)
[2024-06-04] MEDS: Senna TAB 8.6 mg TAB PO SCH (08:24)
[2024-06-04] MEDS: Heparin 5000 UNITS/ML 1 mL VIAL SUBCUT SCH (08:24)
[2024-06-04 08:31] LABS: Creatinine, Serum 2.48 mg/dL (0.51-0.95); Potassium 4.5 mmol/L (3.5-5.0); eGFR CKD-EPI 19.8 (>60)
[2024-06-04] MEDS: [UNRECOGNIZED DRUG - OTHER] INH SCH (09:04)
[2024-06-04 11:42] LABS: Albumin 3.6 g/dL (3.5-5.7); Albumin/Globulin Ratio 1.3 (1-3); Direct Bilirubin 0.1 mg/dL (0.03-0.18); Globulin 2.7 g/dL (2-4); Indirect Bilirubin 0.5 mg/dL (0.3-1.0); Total Bilirubin 0.6 mg/dL (0.2-1.0); Total Protein 6.3 g/dL (6.4-8.9)
[2024-06-04] MEDS: Prochlorperazine 5 mg/ml 2 ml VIAL (10 mg) IV ONE (11:56)
[2024-06-04] MEDS: Famotidine IV 10 MG/ML 2 ml VIAL (20 mg) IV SLOW PU ONE (17:36)
[2024-06-04] MEDS: Bumetanide IV 0.25 MG/ML 4 ml VIAL (1 mg) IV SLOW PU ONE (17:45)
[2024-06-04] MEDS ORDERED: Senna/Docusate 8.6/50 mg (NF) TAB PO SCH (21:00)
[2024-06-05 07:06] LABS: ABS Eosinophils 0.1 10^3/uL (0.0-0.5); ABS Lymphocytes 0.5 10^3/uL (1.0-4.8); ABS Monocytes 0.3 10^3/uL (0.0-0.9); ABS Neutrophils 1.7 10^3/uL (1.5-7.6); ABS Nucleated RBC 0.01 10^3/ul; Eosinophil % 3.9 %; Hematocrit 32.2 % (35-45); Hemoglobin 11.1 g/dL (11.5-14.3); Mean Corpuscular Hemoglobin 30.4 pg (27-33); Mean Corpuscular Hgb Conc 34.4 g/dL (31-36); Mean Corpuscular Volume 88.6 fL (80-97); Mean Platelet Volume 9.1 fL (7.5-11.2); Nucleated Red Blood Cells % 0.3 %/100WBC (0.0-0.8); Platelet Count 158 10^3/uL (150-450); Red Blood Count 3.63 10^6/uL (3.63-4.92); Red Cell Distribution Width 15.2 % (12-17); White Blood Count 2.6 10^3/uL (3.8-11.8)
[2024-06-05 07:10] LABS: Calcium 8.3 mg/dL (8.6-10.3); Creatinine, Serum 2.57 mg/dL (0.51-0.95); Magnesium 1.8 mg/dL (1.9-2.7); Phosphorus 3.5 mg/dL (2.5-5.0); Potassium 4.4 mmol/L (3.5-5.0); eGFR CKD-EPI 18.9 (>60)
[2024-06-05] MEDS: Magnesium Sulfate 2 gm BAG 2 GM/50 ML BAG IVPB ONE (10:27)
[2024-06-05] MEDS: Calcium Carb (TUMS) 500 mg CHEW TAB PO PRN (23:02)
[2024-06-06 05:40] LABS: ABS Eosinophils 0.2 10^3/uL (0.0-0.5); ABS Lymphocytes 0.9 10^3/uL (1.0-4.8); ABS Monocytes 0.3 10^3/uL (0.0-0.9); ABS Neutrophils 2.1 10^3/uL (1.5-7.6); ABS Nucleated RBC 0.01 10^3/ul; Eosinophil % 4.4 %; Hemoglobin 12.2 g/dL (11.5-14.3); Lymphocyte % 25.9 %; Mean Corpuscular Hemoglobin 30.2 pg (27-33); Mean Corpuscular Volume 88.7 fL (80-97); Mean Platelet Volume 8.6 fL (7.5-11.2); Nucleated Red Blood Cells % 0.3 %/100WBC (0.0-0.8); Platelet Count 168 10^3/uL (150-450); Red Blood Count 4.05 10^6/uL (3.63-4.92); Red Cell Distribution Width 15.3 % (12-17); White Blood Count 3.5 10^3/uL (3.8-11.8)
[2024-06-06 06:19] LABS: Creatinine, Serum 2.66 mg/dL (0.51-0.95); Magnesium 2.2 mg/dL (1.9-2.7); Potassium 3.9 mmol/L (3.5-5.0); eGFR CKD-EPI 18.2 (>60)
[2024-06-06] MEDS: Bumetanide IV 0.25 MG/ML 4 ml VIAL (1 mg) IV SLOW PU ONE (11:48)
[2024-06-07 06:46] LABS: ABS Eosinophils 0.1 10^3/uL (0.0-0.5); ABS Lymphocytes 0.9 10^3/uL (1.0-4.8); ABS Monocytes 0.2 10^3/uL (0.0-0.9); ABS Neutrophils 2.2 10^3/uL (1.5-7.6); Eosinophil % 4.1 %; Hematocrit 33.9 % (35-45); Hemoglobin 11.6 g/dL (11.5-14.3); Lymphocyte % 26.9 %; Mean Corpuscular Hemoglobin 29.8 pg (27-33); Mean Corpuscular Hgb Conc 34.1 g/dL (31-36); Mean Corpuscular Volume 87.5 fL (80-97); Mean Platelet Volume 8.9 fL (7.5-11.2); Nucleated Red Blood Cells % 0.1 %/100WBC (0.0-0.8); Platelet Count 174 10^3/uL (150-450); Red Blood Count 3.88 10^6/uL (3.63-4.92); Red Cell Distribution Width 15.5 % (12-17); White Blood Count 3.5 10^3/uL (3.8-11.8)
[2024-06-07 09:07] LABS: Calcium 8.3 mg/dL (8.6-10.3); Creatinine, Serum 2.72 mg/dL (0.51-0.95); Potassium 4.4 mmol/L (3.5-5.0); eGFR CKD-EPI 17.7 (>60)
[2024-06-07 14:21] VITALS: BP 127/53
== END 2024-06-07 15:52 | disposition home or self-care (01) ==
LOC: EDHOLD 15:35 → ED 15:35 → SUATTDRO 06-04 01:27 → MEDTELE 06-04 02:52
PROVIDERS: ADMIT Hospitalist; ATTEND Student in an Organized Health Care Education/Training Program